=== PATIENT | female | born 1995 | race Caucasian/White ===

== ENCOUNTER 2021-04-28 22:56 | Emergency (ER) | payer SELFPAY ==
[2021-04-28 22:59] VITALS: BP 137/93; PULSE 124; RESP 18; TEMP 36.4; O2SAT 99; BMI 36.1
--- NOTE | 2021-04-28 23:04 | EDS_ITS ---
HPI History of Present Illness Chief Complaint: Laceration Narrative Narrative: 25-year-old female presents with laceration to the right calf. She states she was wiggling and she had her legs crossed in front of her and somehow managed to slice her leg when she came through with a forward motion. Bleeding is controlled with a dressing. Last tetanus unknown. Patient ambulatory. She denies significant medical problems. [facility] Medical History Anxiety Depression Home Medications buspirone 7.5 mg PO DAILY 04/28/21 [History Last Taken Unknown] duloxetine [Cymbalta] 30 mg PO DAILY 04/28/21 [History Last Taken Unknown] Allergy/AdvReac Type Severity Reaction Status Date / Time No Known Allergies Allergy Verified 04/28/21 22:57 Surgical History Hx of cholecystectomy [place] teeth extracted Social History Smoking Status: Current every day smoker tobacco type: e-cigarettes ROS ROS ED Constitutional Constitutional ED: Denies fever(s) or subjective Eyes Eyes: Denies blurry vision or change in vision ENT ENT ED: Denies rhinorrhea or sore throat Cardiovascular Cardiovascular: Denies chest pain or palpitations Respiratory/Chest Respiratory/Chest: Denies cough, dyspnea or sputum Gastrointestinal Gastrointestinal: Denies abdominal pain, nausea or vomiting Genitourinary Genitourinary ED: Denies dysuria or hematuria Musculoskeletal Musculoskeletal: Denies arthralgias or myalgias Integumentary Reports other Details: Laceration right calf Neurologic Neurologic: Denies headache(s) or paresthesias EXAM Physical Exam Const Vital Signs: 04/28/21 22:59 Temperature 97.6 F L Temperature Source Temporal Pulse Rate 124 H Respiratory Rate 18 Blood Pressure 137/93 H Blood Pressure Mean 107 Pulse Ox 99 Positive well nourished General Appearance ED: NAD HEENT normocephalic and atraumatic Eyes PERRL Resp normal respiratory effort Cardio regular rate and regular rhythm Extremity General Extremety ED: Negative for cyanosis or edema General Extremity: Negative for cyanosis or edema Neuro oriented x3 Sensorium / Orientation: alert Psych mental status grossly normal Skin Skin Narrative: 6 cm laceration to the right posterior medial calf. Bleeding is well controlled. Adipose layer is exposed. No muscle or tendons are visualized. MDM MDM MDM Narrative Medical decision making narrative: Patient's wound was cleaned with chlorhexidine and anesthetized. Sutures were placed with good approximation of wound borders please see procedure note. Patient counseled on wound care and monitoring for signs of infection. She will have her sutures out in 2 weeks. Patient's tetanus was updated today. Patient discharged home in stable condition. Impression: 1. Procedures Lacerations Right leg laceration: Length: 2.36 in Depth: Skin Shape: Linear Prep: Sterile Conditions and Chlorhexadine Laceration repair: Irrigated and Lidocaine with epi Irrigated (ml): 500 Number of Sutures/[place]: 8 Suture Information: [place] Discharge Plan Triage Chief Complaint: Laceration ED Provider: Kelton Rai Dx/Rx/DC Orders Prescriptions: No Action buspirone 7.5 mg Tablet 7.5 mg PO DAILY RF: 0 duloxetine [Cymbalta] 30 mg Capsule,Delayed Release(Dr/Ec) 30 mg PO DAILY RF: 0 Primary Care Provider: Fiona Palomino NP Referrals: Fiona Palomino NP, [employer] [facility] [Primary Care Provider] -
[2021-04-28] MEDS: Diphth,Pertuss(Acell),Tet Vac 0.5 ML Vial IM (23:36)
[2021-04-29] MEDS: Lidocaine 1% /Epi 1:100 (20ml) 20 ML Vial INFILT (01:14)
== END 2021-04-29 01:15 | disposition home or self-care (01) ==
PROVIDERS: Emergency Provider Student in an Organized Health Care Education/Training Program; PCP Registered Nurse
DX: S81.811A Laceration without foreign body, right lower leg, initial encounter (principal); F32.9 Major depressive disorder, single episode, unspecified; F41.9 Anxiety disorder, unspecified; F17.290 Nicotine dependence, other tobacco product, uncomplicated; Z79.899 Other long term (current) drug therapy; X58.XXXA Exposure to other specified factors, initial encounter
CPT/HCPCS: 12001; 90715; 96372; 99282

== ENCOUNTER 2022-06-11 08:04 | Emergency (ER) | payer SELFPAY ==
[2022-06-11 08:04] VITALS: BP 109/69; PULSE 85; RESP 16; TEMP 35.9; O2SAT 99; BMI 32.5
[2022-06-11] MEDS: DiphenhydrAMINE 50 MG/ML Syringe 25 MG IV (08:28)
[2022-06-11] MEDS: Metoclopramide 10 MG/2 ML Vial IV (08:29)
[2022-06-11] MEDS: Ketorolac 15 MG/ML Vial IV (08:29)
--- NOTE | 2022-06-11 08:52 | EDS_ITS ---
HPI History of Present Illness Chief Complaint: Headache Detail of Chief Complaint: Migraine headache Informant: patient Onset/Context/Timing Onset: Days Context: Gradual Timing: Continuous Quality -Headache: Positive for Throbbing; Negative for Similar Prior Headaches, Sharp or Dull Location: Bifrontal Current Severity: Mild Maximum Severity: Moderate Worsened by: Light and sound Relieved by: Nothing, has been taking Aleve Associated Symptoms/Injury Associated Symptoms: Positive for Nausea and Photophobia; Negative for Fever, Vomiting, Sore Throat, Sinus Pressure, Numbness, Tingling, Preceding Aura, Visu al Changes, Blurred Vision or Visual Loss Injury - [place]: Negative for Direct Trauma Narrative Narrative: Patient is a 26-year-old female who presents with bifrontal headache. She believes he has a migraine. She is admitted diagnosed with migraine. She does report myalgias, arthralgias, nasal congestion and productive cough. She denies history of motion sickness. She denies double vision or loss of vision. [place] ringing ears decreased hearing. She states she has problems with her balance. She denies vomiting diarrhea. She denies rash. She denies any allergies. Prior similar symptoms: No Recent Illness/Hospitalization: No [facility] Medical History Anxiety Depression Home Medications buspirone 7.5 mg tablet 7.5 mg PO DAILY 04/28/21 [History Last Taken Unknown] duloxetine 30 mg capsule,delayed release (Cymbalta) 30 mg PO DAILY 04/28/21 [History Last Taken Unknown] Allergy/AdvReac Type Severity Reaction Status Date / Time No Known Allergies Allergy Verified 06/11/22 08:06 Surgical History Hx of cholecystectomy [place] teeth extracted Social History (Updated 06/11/22 @ 08:[address] Miguelangel Hager MD) household members: spouse do you think of yourself as: lesbian/choe/homosexual Smoking Status: Current every day smoker tobacco type: e-cigarettes substance use type: does not use ROS ROS ED Constitutional Constitutional ED: Reports fever(s) and subjective; Denies chills, sweats or weight loss Eyes Eyes: Reports blurry vision bilateral; Denies change in vision or diplopia ENT ENT ED: Reports rhinorrhea; Denies ear pain or sore throat Cardiovascular Cardiovascular: Denies chest pain or palpitations Respiratory/Chest Respiratory/Chest: Reports cough; Denies dyspnea or dyspnea on exertion Gastrointestinal Gastrointestinal: Reports nausea; Denies abdominal pain, diarrhea or vomiting Genitourinary Genitourinary ED: Denies dysuria, hematuria or urinary frequency Musculoskeletal Musculoskeletal: Reports arthralgias and myalgias; Denies back pain or neck pain Integumentary Denies Abrasions or rash Neurologic Neurologic: Reports headache(s); Denies paresthesias or weakness Psychiatric Psychiatric: Reports anxiety and depression Endocrine Endocrinology: Denies polydipsia, polyphagia or polyuria Hematologic/Lymphatic Hematologic/Lymphatic: Denies easy bleeding EXAM Physical Exam Const Vital Signs: 06/11/22 08:04 Temperature 96.7 F L Temperature Source Temporal Pulse Rate 85 Respiratory Rate 16 Blood Pressure 109/69 Blood Pressure Mean 82 Pulse Ox 99 Oxygen Delivery Method Room Air Positive well nourished, well developed and obese General Appearance ED: well developed and NAD; Negative for cyanotic or diaphoretic Nutritional Appearance: obese HEENT Reports normocephalic, TM's clear and moist mucous membranes HEENT Narrative: Nares patent. Mild discharge. Uvula midline. No deviation trusion. atraumatic Face and Sinus: Negative for sinus tenderness Tympanic Membrane ED: Yes TM's clear Eyes PERRL and EOMs intact bilaterally Eyes Narrative: Patient has no photophobia. General Eye ED: Negative for pale conjunctiva or scleral icterus Neck no lymphadenopathy, supple, no meningeal signs and no JVD Resp normal respiratory effort and clear to auscultation bilaterally Cardio regular rate, regular rhythm, S1 normal heart sound, S2 normal heart sound and no murmurs GI non-tender and non-distended Auscultation: normoactive bowel sounds Palpation: soft Back/Spine no CVA tenderness Extremity normal to inspection, full ROM and normal capillary refill Neuro oriented x3, CN's II-XII intact bilaterally and no sensory deficits noted Vincent Coma Scale: document GCS findings Spontaneous Obeys Commands Oriented 15 Sensorium / Orientation: awake and alert Coordination / Balance: [id number] test normal Motor Exam: strength 5/5 throughout Psych mental status grossly normal Skin General Skin Exam: elasticity normal and turgor normal Lesions: no lesions Rashes: no rashes MDM MDM MDM Narrative Medical decision making narrative: Patient's headache is more consistent with a viral type cephalgia. Treatment and Re-Evaluation Narrative: Patient was reassessed at 0942. She is smiling. Headache has improved significantly. She was informed that her headache is due to a viral infection. She requested work excuse for today. Discharge Plan Triage Chief Complaint: Headache ED Provider: Miguelangel Hager Dx/Rx/DC Orders Clinical Impression: Viral cephalgia, Infection of the upper respiratory tract Instructions: ED Viral Syndrome (Adult) Prescriptions: No Action buspirone 7.5 mg Tablet 7.5 mg PO DAILY duloxetine [Cymbalta] 30 mg Capsule,Delayed Release(Dr/Ec) 30 mg PO DAILY Stand Alone Forms: ED Work / School Excuse Primary Care Provider: Fiona Palomino NP Referrals: Fiona Palomino NP, [employer] TRADER-C [Primary Care Provider] - 10-14 Days if not better Disposition Disposition: Home, Self Care
== END 2022-06-11 10:06 | disposition home or self-care (01) ==
PROVIDERS: Emergency Provider Emergency Medicine; PCP Registered Nurse; Visit Provider Emergency Medicine
DX: R51.9 Headache, unspecified (principal); J06.9 Acute upper respiratory infection, unspecified; F17.290 Nicotine dependence, other tobacco product, uncomplicated; E66.9 Obesity, unspecified
CPT/HCPCS: 96374; 96375; 99282; A4216

== ENCOUNTER → 2023-04-14 | Outpatient (CLI) | payer SELFPAY ==
[2023-04-16 12:09] LABS: QNTFERON TB Mitogen Value > 10.00 IU/mL (.); QNTFERON TB Nil Value 0 IU/mL (.); QNTFERON TB1+ Ag Value 0 IU/mL (.); QNTFERON TB2+ Ag Value 0 IU/mL (.); QNTIFERON TB Positive Criteria Negative (Negative)
== END | disposition home or self-care (01) ==
PROVIDERS: PCP Registered Nurse; Referring Provider Physician Assistant; Visit Provider Physician Assistant
DX: Z02.1 Encounter for pre-employment examination (principal)
CPT/HCPCS: 36415; 86480

== ENCOUNTER 2023-09-08 06:17 | Emergency (ER) | payer MEDICAID, SELFPAY ==
[2023-09-08 06:18] VITALS: BP 106/79; PULSE 91; RESP 16; TEMP 36.8; O2SAT 99; BMI 30.9
--- OUTSIDE RECORDS SUMMARY | 2023-09-08 06:44 | XMS RPT_ITS | CCD ---
Author Name Unknown Address [address] [place] [address] Organization [facility] Care Team Providers Care Printmaker Name Role Phone GRETEL NEGRETE Unavailable Unavailable ADRIAN FERNANDES Unavailable Unavailable Nany Aguirre CNP Primary Care Provider [phone] Nany Aguirre CNP Primary Care Provider [phone] Stephen Waller MD Primary Care Provider STEPHEN WALLER Attending Unavailable STEPHEN WALLER Primary Care Unavailable FLAVIO FARRIS Attending Unavailable Nany Aguirre CNP Primary Care Provider Nany Aguirre CNP Primary Care Provider NANY AGUIRRE Primary Care Unavailable NANY AGUIRRE Primary Care Unavailable NANY AGUIRRE Primary Care Unavailable NANY AGUIRRE Primary Care Unavailable Medications Current Medications Medication Drug Class(es) Dates Sig (Normalized) Sig (Original) amoxicillin 875 mg oral tablet (2 sources) Penicillin-class Antibacterial Start: 03-25-2022 End: 04-01-2022 take 1 tablet by mouth twice daily amoxicillin (AMOXIL) 875 mg tablet Indications: URI, acute , Pharyngitis, unspecified etiology Take 1 tablet by mouth twice daily for 7 days. 14 tablet 0 03/25/2022 04/01/2022 Active Completed/Discontinued Medications Medication Drug Class(es) Dates Sig (Normalized) Sig (Original) benzonatate 100 mg oral capsule (2 sources) Non-narcotic Antitussive Start: 07-01-2023 take 1 capsule by mouth every eight hours as needed benzonatate (TESSALON PERLES) 100 mg capsule Take 1 capsule by mouth three times a day as needed for cough. 21 capsule 0 07/01/2023 Active Problems Active Problems Problem Classification Problem Date Documented Date Episodic/Chronic Administrative/social admission (1 source) Worried well; Translations: [Person with feared health complaint in whom no diagnosis is made] 04-06-2023 Episodic Anxiety disorders (2 sources) Anxiety; Translations: [Anxiety disorder, unspecified] Onset: 11-12-2015 04-24-2022 Chronic Conditions associated with dizziness or vertigo (5 sources) Vertigo; Translations: [Dizziness and giddiness] Onset: 09-22-2022 09-22-2022 Episodic Disorders of teeth and jaw (1 source) Toothache; Translations: [Other specified disorders of teeth and supporting structures] 04-06-2023 Episodic Disorders usually diagnosed in infancy, childhood, or adolescence (2 sources) Attention deficit hyperactivity disorder, predominantly inattentive type; Translations: [Other specified behavioral and emotional disorders with onset usually occurring in childhood and adolescence] Onset: 10-19-2020 04-24-2022 Chronic Immunizations and screening for infectious disease (1 source) Contact with or exposure to other viral diseases; Translations: [Exposure to COVID-19 virus] Episodic Mood disorders (2 sources) Depressive disorder; Translations: [Depression] Onset: 11-12-2015 04-24-2022 Chronic Nausea and vomiting (2 sources) Nausea, vomiting and diarrhea; Translations: [Nausea with vomiting, unspecified] Episodic Other upper respiratory infections (4 sources) Acute upper respiratory infection; Translations: [Acute upper respiratory infection, unspecified] Episodic Otitis media and related conditions (2 sources) Acute right otitis media; Translations: [Otitis media, unspecified, right ear] Episodic Syncope (5 sources) Near syncope; Translations: [Syncope and collapse] Onset: 09-22-2022 09-22-2022 Episodic Past or Other Problems Problem Classification Problem Date Documented Date Episodic/Chronic Noninfectious gastroenteritis (4 sources) Gastroenteritis; Translations: [Noninfective gastroenteritis and colitis, unspecified] Onset: 06-20-2022 06-20-2022 Episodic Residual codes; unclassified (2 sources) Insomnia; Translations: [Insomnia, unspecified] Onset: 11-12-2015 04-24-2022 Episodic Residual codes; unclassified (2 sources) Tobacco user; Translations: [Tobacco use] Onset: 01-10-2016 04-24-2022 Episodic Results Test Name Value Interpretation Reference Range Facil ity Vital Signs Date Time Vital Sign Value Performing Clinician Jb hayden 07-01-2023 18:14-0500 Body temperature 99.19 [degF] Cherise Pelaez [employer] Work Phone: [facility] 07-01-2023 18:14-0500 Body weight 71.67 kg Cherise Pelaez [employer] Work Phone: [facility] 07-01-2023 18:14-0500 Diastolic blood pressure 82 mm[Hg] Cherise Pelaez [employer] Work Phone: [facility] 07-01-2023 18:14-0500 Heart rate 84 /min Cherise Pelaez [employer] Work Phone: [facility] 07-01-2023 18:14-0500 Respiratory rate 18 /min Cherise Pelaez [employer] Work Phone: [facility] 07-01-2023 18:14-0500 SaO2% (BldA) [Mass fraction] 99 % Cherise Pelaez [employer] Work Phone: [facility] 07-01-2023 18:14-0500 Systolic blood pressure 128 mm[Hg] Cherise Pelaez [employer] Work Phone: [facility] 04-06-2023 09:34-0400 Body temperature 97.3 [degF] Cherise Pelaez [employer] Work Phone: [facility] 04-06-2023 09:34-0400 Body weight 78.02 kg Cherise Pelaez [employer] Work Phone: [facility] 04-06-2023 09:34-0400 Diastolic blood pressure 72 mm[Hg] Cherise Pelaez [employer] Work Phone: [facility] 04-06-2023 09:34-0400 Heart rate 94 /min Cherise Pelaez [employer] Work Phone: [facility] 04-06-2023 09:34-0400 Respiratory rate 16 /min Cherise Pelaez [employer] Work Phone: [facility] 04-06-2023 09:34-0400 SaO2% (BldA) [Mass fraction] 99 % Cherise Pelaez [employer] Work Phone: [facility] 04-06-2023 09:34-0400 Systolic blood pressure 122 mm[Hg] Cherise Pelaez [employer] Work Phone: [facility] 11-17-2022 10:21-0400 Body temperature 98.4 [degF] Dimitri Pendlebury [employer] Work Phone: [facility] 11-17-2022 10:21-0400 Body weight 72.12 kg Dimitri Leoniegabrielkarl [employer] Work Phone: [facility] 11-17-2022 10:21-0400 Diastolic blood pressure 68 mm[Hg] Dimitri Pendlebury [employer] Work Phone: [facility] 11-17-2022 10:21-0400 Heart rate 87 /min Dimitri Pendlebury [employer] Work Phone: [facility] 11-17-2022 10:21-0400 Respiratory rate 18 /min Dimitri Pendlebury [employer] Work Phone: [facility] 11-17-2022 10:21-0400 SaO2% (BldA) [Mass fraction] 99 % Dimitri Leonielekarl [employer] Work Phone: [facility] 11-17-2022 10:21-0400 Systolic blood pressure 104 mm[Hg] Dimitri Pendlebury [employer] Work Phone: [facility] 10-08-2022 13:48-0400 Body temperature 98.8 [degF] Dayna Aguilar [employer] Work Phone: [facility] 10-08-2022 13:48-0400 Body weight 72.67 kg Dayna Aguilar [employer] Work Phone: [facility] 10-08-2022 13:48-0400 Diastolic blood pressure 72 mm[Hg] Dayna Callow [employer] Work Phone: [facility] 10-08-2022 13:48-0400 Heart rate 92 /min ow [employer] Work Phone: [facility] 10-08-2022 13:48-0400 Respiratory rate 18 /min ow [employer] Work Phone: [facility] 10-08-2022 13:48-0400 SaO2% (BldA) [Mass fraction] 98 % [employer] Work Phone: [facility] 10-08-2022 13:48-0400 Systolic blood pressure 116 mm[Hg] [employer] Work Phone: [facility] 09-22-2022 13:21-0400 Body height 153.7 cm Stephen Waller MD Work Phone: [facility] 09-22-2022 13:21-0400 Body mass index (BMI) [Ratio] 31.19 kg/m2 Stephen Waller MD Work Phone: [facility] 09-22-2022 13:21-0400 Body temperature 98.6 [degF] Stephen Waller MD Work Phone: [facility] 09-22-2022 13:21-0400 Body weight 73.66 kg Stephen Waller MD Work Phone: [facility] 09-22-2022 13:21-0400 Diastolic blood pressure 77 mm[Hg] Stephen Waller MD Work Phone: [facility] 09-22-2022 13:21-0400 Heart rate 85 /min Stephen Waller MD Work Phone: [facility] 09-22-2022 13:21-0400 Systolic blood pressure 122 mm[Hg] Stephen Waller MD Work Phone: [facility] 03-25-2022 14:07-0400 Body temperature 97.39 [degF] Cherise Pelaez [employer] Work Phone: [facility] 03-25-2022 14:07-0400 Body weight 76.39 kg Cherise Pelaez [employer] Work Phone: [facility] 03-25-2022 14:07-0400 Diastolic blood pressure 66 mm[Hg] Cherise Pelaez [employer] Work Phone: [facility] 03-25-2022 14:07-0400 Heart rate 73 /min Cherise Pelaez [employer] Work Phone: [facility] 03-25-2022 14:07-0400 Respiratory rate 16 /min Cherise Pelaez [employer] Work Phone: [facility] 03-25-2022 14:07-0400 SaO2% (BldA) [Mass fraction] 99 % Cherise Pelaez [employer] Work Phone: [facility] 03-25-2022 14:07-0400 Systolic blood pressure 110 mm[Hg] Cherise Pelaez [employer] Work Phone: [facility] 03-13-2022 08:00-0400 Body temperature 98.2 [degF] Daina Lanie [employer] Work Phone: [facility] 03-13-2022 08:00-0400 Body weight 75.84 kg Daina Lanie [employer] Work Phone: [facility] 03-13-2022 08:00-0400 Diastolic blood pressure 72 mm[Hg] Daina Lanie [employer] Work Phone: [facility] 03-13-2022 08:00-0400 Heart rate 75 /min Daina Lanie [employer] Work Phone: [facility] 03-13-2022 08:00-0400 Respiratory rate 18 /min Daina Lanie [employer] Work Phone: [facility] 03-13-2022 08:00-0400 SaO2% (BldA) [Mass fraction] 100 % Daina Dela Cruz [employer] Work Phone: [facility] 03-13-2022 08:00-0400 Systolic blood pressure 110 mm[Hg] Daina Dela Cruz [employer] Work Phone: [facility] 12-23-2021 11:42-0400 Body temperature 98.29 [degF] Cherise Pelaez [employer] Work Phone: [facility] 12-23-2021 11:42-0400 Body weight 80.29 kg Cherise Pelaez [employer] Work Phone: [facility] 12-23-2021 11:42-0400 Diastolic blood pressure 72 mm[Hg] Cherise Pelaez [employer] Work Phone: [facility] 12-23-2021 11:42-0400 Heart rate 98 /min Cherise Pelaez [employer] Work Phone: [facility] 12-23-2021 11:42-0400 Respiratory rate 16 /min Cherise Pelaez [employer] Work Phone: [facility] 12-23-2021 11:42-0400 SaO2% (BldA) [Mass fraction] 98 % Cherise Pelaez [employer] Work Phone: [facility] 12-23-2021 11:42-0400 Systolic blood pressure 124 mm[Hg] Cherise Pelaez [employer] Work Phone: [facility] Encounters Encounter Date Encounter Type Care Provider Facility Start: 07-02-2023 Telephone encounter Daina Dela Cruz [employer] Work Phone: [facility] Care Procedures Date Procedure Procedure Detail Performing Clinician Start: 07-01-2023 COVID & INFLUENZA A/ B & RSV NAAT, ROUTINE Cherise Pelaez [employer] Work Phone: Start: 10-08-2022 STREP A MOLECULAR (POC) [facility] Provider Start: 03-25-2022 STREP A MOLECULAR (POC) Cherise Pelaez [employer] Work Phone: Plan of Treatment Date Care Activity Detail Author Start: 2043 Zoster Vaccines (1 of 2) Zoster Vacc jane (1 of 2) [facility] Start: 04-28-2031 DTaP/Tdap/Td Vaccine s (2 - Td or Tdap) DTaP/Tdap/Td Vaccines (2 - Td or Tdap) [facility] Start: 04-28-2031 Urine microalbumin profile DTaP,Tdap,Td Vaccine (2 - Td or Tdap) [facility] Start: 03-13-2023 Covid-19 Vaccine ( season) Covid-19 Vaccine ( season) [facility] Start: 03-13-2023 Influenza vaccination C [facility] Start: 09-22-2022 End: 09-23-2023 CBC W Auto Differential panel - Blood CBC auto differential Lab Routine Near syncope Vertigo Expected: 09/22/2022 (Approximate), Expires: 09/23/2023 [facility] Immunizations Immunization Date Immunization Notes Care Provider Fa cility 04-28-2021 tetanus toxoid, redu aby diphtheria toxoid, and acellular pertussis vaccine, adsorbed Elana Ponce RN [facility] 12-27-2020 Pfizer SARS-CoV-2 Vaccination Elana Ponce RN [facility] 12-06-2020 Pfizer SARS-CoV-2 Vaccination Elana Ponce RN [facility] 05-19-2016 influenza virus vacc ine, unspecified formulation Elana Ponce RN [facility] 05-19-2016 influenza, injectabl e, quadrivalent, contains preservative Elana Ponce RN [facility] Payers Date Payer Category Payer Self-pay Social History Date Type Detail Facility Start: 11-11-2014 End: 03-13-2022 Tobacco smoking status NHIS Smokes tobacco daily [facility] Start: 11-11-2014 End: 07-01-2023 Cigarettes smoked current (pack per day) - Reported 1 [facility] Start: 11-11-2014 End: 03-13-2022 Tobacco use and exposure Smokeless tobacco non-user [facility] Start: 12-23-2021 End: 07-01-2023 Alcohol intake Current drinker of alcohol (finding) [facility] Start: 01-13-2013 History SDOH Alcohol Comment socially [facility] Start: 1995 Sex Assigned At Not on file [facility] Start: 12-13-2021 End: 09-22-2022 Exposure to SARS-CoV-2 (event) Not sure [facility] Work Phone: History of tobacco use Cigarette Smoker C [facility] Start: 03-03-2022 End: 03-13-2022 Exposure to SARS-CoV-2 (event) Yes [facility] Work Phone: Tobacco smoking stat us [facility] Ex-smoker [facility] History of tobacco use Current smoker [facility] Start: 09-22-2022 Alcohol intake Current non-dr assistant professor of english of alcohol (finding) [facility] Start: 09-22-2022 History SDOH Financial 5 [facility] Start: 09-22-2022 History SDOH Food Worry 1 [facility] Start: 09-22-2022 History SDOH Transpo rt Med 2 [facility] Start: 04-06-2023 End: 07-01-2023 Tobacco use panel [facility] Clinical Notes 12-23-2021 to 07-02-2023 Telephone Encounter - Karen Matthews - 07/02/2023 9:01 AM ESTTelephone Encounter - Daina Dela Cruz APRN.CNP - 07/02/2023 7:09 AM Cherise Reddy APRN.CNP - 07/01/2023 6:18 PM ESTPatient Instructions Note Date & Type Note Facility 07-02-2023 Miscellaneous Notes Patient verbally understands she tested positive for influenza and if symptoms worsen to go to the ER. Karen Matthews Please notify of negative covid and RSV test. Influenza A was positive. Continue comfort measures for symptoms as you would for a cold and as discussed at visit. As long as you are runninig a fever you are contagious. Any worsening symptoms follow up with PCP or ER. Daina Dela Cruz [employer] documented in this encounter [facility] 07-01-2023 Note HNO ID: [id number] Author: Cherise Pelaez APRN.CNP Service: ? Author Type: Nurse Practitioner Type: Progress Notes Filed: 07/01/2023 6:39 PM Note Text: This note was created using [employer]. Subjective Fang Leger is a 27 year old female. 27 year old female with PMH anxiety presents for illness. Acute onset 2 days ago +cough +body aches +fatigue +Fever +chills +headache +generalized weakness +N/V/D Denies CP Denies skin rash or lesions. Denies dyspnea Of note, she endorses that she hosted a [employer] democrat at her house, Multiple ill contacts from democrat The history is provided by the patient. No humanities and languages professor was used. URI She complains of cough. There is no chest tightness, difficulty breathing, frequent throat clearing, hemoptysis, hoarse voice, shortness of breath, sputum production or wheezing. This is a new problem. Episode onset: 2 days ago. The problem occurs constantly. The problem has been unchanged. The cough is non-productive. Associated symptoms include appetite change, a fever, headaches, malaise/fatigue, myalgias, nasal congestion, postnasal drip, rhinorrhea and sneezing. Pertinent negatives include no chest pain, ear congestion, ear pain, sweats, trouble swallowing or weight loss. Her symptoms are aggravated by nothing. Her symptoms are alleviated by nothing. She reports no improvement on treatment. There is no history of asthma, bronchiectasis, bronchitis, COPD, emphysema or pneumonia. PAST MEDICAL HISTORY Diagnosis Date Psychiatric disorder depression/anxiety/add PAST SURGICAL HISTORY Procedure Laterality Date TOOTH EXTRACTION wisdom teeth ALLERGIES Patient has no known allergies. MEDICATIONS fluticasone (FLONASE) 50 mcg/actuation nasal spray Use 2 Sprays in each nostril once daily. Rinse mouth after use. busPIRone (BUSPAR) 7.5 mg tablet Take 1 tablet by mouth once daily. benzonatate (TESSALON PERLES) 100 mg capsule Take 1 capsule by mouth three times a day as needed for cough. ondansetron orally disintegrating (ZOFRAN ODT) 4 mg disintegrating tablet Take 1 tablet by mouth every 6 hours as needed for nausea/vomiting. (Patient not taking: Reported on 04/06/2023) pseudoephedrine (SUDAFED) 60 mg tablet Take 0.5 tablets by mouth every 4 hours as needed. (Patient not taking: Reported on 04/06/2023) DULoxetine (CYMBALTA) 30 mg capsule Take 1 capsule by mouth once daily. (Patient not taking: Reported on 10/08/2022) DULoxetine (CYMBALTA) 60 mg capsule Take 1 capsule by mouth once daily. (Patient not taking: Reported on 10/08/2022) medroxyPROGESTERone (DEPO-PROVERA) 150 mg/mL injection Inject 150 mg intramuscularly. (Patient not taking: Reported on 10/08/2022) No family history on file. Social History Tobacco Use Smoking status: Every Day Packs/day: 1 Types: Cigarettes Smokeless tobacco: Never Substance Use Topics Alcohol use: Yes Comment: socially Drug use: No Review of Systems Constitutional: Positive for appetite change, chills, fatigue, fever and malaise/fatigue. Negative for weight loss. HENT: Positive for congestion, postnasal drip, rhinorrhea, sinus pressure, sinus pain and sneezing. Negative for ear pain, hoarse voice and trouble swallowing. Eyes: Negative for pain, discharge, redness and itching. Respiratory: Positive for cough. Negative for apnea, hemoptysis, sputum production, choking, chest tightness, shortness of breath and wheezing. Cardiovascular: Negative for chest pain, palpitations and leg swelling. Gastrointestinal: Negative for abdominal pain, diarrhea, nausea and vomiting. Musculoskeletal: Positive for myalgias. Negative for arthralgias and back pain. Skin: Negative for color change, pallor, rash and wound. Allergic/Immunologic: Negative for environmental allergies, food allergies and immunocompromised state. Neurological: Positive for headaches. Hematological: Negative for adenopathy. Does not bruise/bleed easily. Psychiatric/Behavioral: Negative for agitation and behavioral problems. Objective BP 128/82 Pulse 84 Temp 37.3 ?C (99.2 ?F) (Tympanic) Resp 18 Wt 71.7 kg (158 lb) LMP 10/25/2014 SpO2 99% BMI 30.86 kg/m? Physical Exam Vitals and nursing note reviewed. Constitutional: General: She is not in acute distress. Appearance: Normal appearance. She is normal weight. She is not ill-appearing, toxic-appearing or diaphoretic. HENT: Head: Normocephalic and atraumatic. Right Ear: Ear canal and external ear normal. Left Ear: Ear canal and external ear normal. Nose: Nose normal. No congestion or rhinorrhea. Mouth/Throat: Mouth: Mucous membranes are moist. Pharynx: Posterior oropharyngeal erythema present. No oropharyngeal exudate. Eyes: General: Right eye: No discharge. Left eye: No discharge. Extraocular Movements: Extraocular movements intact. Conjunctiva/sclera: Conjunctivae normal. Pupils: Pupils are equal, round, and reactive to l (more content not included)... [facility] 07-01-2023 History of Presen t illness Narrative This note was created using [employer]. Afshan Leger is a 27 year old female. 27 year old female with H anxiety presents for illness. Acute onset 2 days ago +cough +body aches +fatigue +Fever +chills +headache +generalized weakness +N/V/D Denies CP Denies skin rash or lesions. Denies dyspnea Of note, she endorses that she hosted a [employer] democrat at her house, Multiple ill contacts from democrat The history is provided by the patient. No humanities and languages professor was used. URI She complains of cough. There is no chest tightness, difficulty breathing, frequent throat clearing, hemoptysis, hoarse voice, shortness of breath, sputum production or wheezing. This is a new problem. Episode onset: 2 days ago. The problem occurs constantly. The problem has been unchanged. The cough is non-productive. Associated symptoms include appetite change, a fever, headaches, malaise/fatigue, myalgias, nasal congestion, postnasal drip, rhinorrhea and sneezing. Pertinent negatives include no chest pain, ear congestion, ear pain, sweats, trouble swallowing or weight loss. Her symptoms are aggravated by nothing. Her symptoms are alleviated by nothing. She reports no improvement on treatment. There is no history of asthma, bronchiectasis, bronchitis, COPD, emphysema or pneumonia. PAST MEDICAL HISTORY Diagnosis Date Psychiatric disorder depression/anxiety/add PAST SURGICAL HISTORY Procedure Laterality Date TOOTH EXTRACTION wisdom teeth ALLERGIES Patient has no known allergies. MEDICATIONS fluticasone (FLONASE) 50 mcg/actuation nasal spray Use 2 Sprays in each nostril once daily. Rinse mouth after use. busPIRone (BUSPAR) 7.5 mg tablet Take 1 tablet by mouth once daily. benzonatate (TESSALON PERLES) 100 mg capsule Take 1 capsule by mouth three times a day as needed for cough. ondansetron orally disintegrating (ZOFRAN ODT) 4 mg disintegrating tablet Take 1 tablet by mouth every 6 hours as needed for nausea/vomiting. (Patient not taking: Reported on 04/06/2023) pseudoephedrine (SUDAFED) 60 mg tablet Take 0.5 tablets by mouth every 4 hours as needed. (Patient not taking: Reported on 04/06/2023) DULoxetine (CYMBALTA) 30 mg capsule Take 1 capsule by mouth once daily. (Patient not taking: Reported on 10/08/2022) DULoxetine (CYMBALTA) 60 mg capsule Take 1 capsule by mouth once daily. (Patient not taking: Reported on 10/08/2022) medroxyPROGESTERone (DEPO-PROVERA) 150 mg/mL injection Inject 150 mg intramuscularly. (Patient not taking: Reported on 10/08/2022) No family history on file. Social History Tobacco Use Smoking status: Every Day Packs/day: 1 Types: Cigarettes Smokeless tobacco: Never Substance Use Topics Alcohol use: Yes Comment: socially Drug use: No Review of Systems Constitutional: Positive for appetite change, chills, fatigue, fever and malaise/fatigue. Negative for weight loss. HENT: Positive for congestion, postnasal drip, rhinorrhea, sinus pressure, sinus pain and sneezing. Negative for ear pain, hoarse voice and trouble swallowing. Eyes: Negative for pain, discharge, redness and itching. Respiratory: Positive for cough. Negative for apnea, hemoptysis, sputum production, choking, chest tightness, shortness of breath and wheezing. Cardiovascular: Negative for chest pain, palpitations and leg swelling. Gastrointestinal: Negative for abdominal pain, diarrhea, nausea and vomiting. Musculoskeletal: Positive for myalgias. Negative for arthralgias and back pain. Skin: Negative for color change, pallor, rash and wound. Allergic/Immunologic: Negative for environmental allergies, food allergies and immunocompromised state. Neurological: Positive for headaches. Hematological: Negative for adenopathy. Does not bruise/bleed easily. Psychiatric/Behavioral: Negative for agitation and behavioral problems. Objective BP 128/82 Pulse 84 Temp 37.3 C (99.2 F) (Tympanic) Resp 18 Wt 71.7 kg (158 lb) LMP 10/25/2014 SpO2 99% BMI 30.86 kg/m Physical Exam Vitals and nursing note reviewed. Constitutional: General: She is not in acute distress. Appearance: Normal appearance. She is normal weight. She is not ill-appearing, toxic-appearing or diaphoretic. HENT: Head: Normocephalic and atraumatic. Right Ear: Ear canal and external ear normal. Left Ear: Ear canal and external ear normal. Nose: Nose normal. No congestion or rhinorrhea. Mouth/Throat: Mouth: Mucous membranes are moist. Pharynx: Posterior oropharyngeal erythema present. No oropharyngeal exudate. Eyes: General: Right eye: No discharge. Left eye: No discharge. Extraocular Movements: Extraocular movements intact. Conjunctiva/sclera: Conjunctivae normal. Pupils: Pupils are equal, round, and reactive to light. Cardiovascular: Rate and Rhythm: Regular rhythm. Pulses: Normal pulses. Heart sounds: Normal heart sounds. No murmur heard. No friction rub. Pulmonary: Effort: Pulmonary effort is normal. No respiratory distress. Breath sounds: Normal breath sounds. No stridor. No wheezing, rhonchi or rales. Chest: Chest wall: No tenderness. Abdominal: General: Abdomen is flat. There is no distension. Palpations: Abdomen is soft. There is no mass. Tenderness: There is no abdominal tenderness. There is no right CVA tenderness, left CVA tenderness, guarding or rebound. Hernia: No hernia is present. Musculoskeletal: General: No swelling, tenderness, deformity or signs of injury. Normal range of motion. Cervical back: Normal range of motion and neck supple. No rigidity. Right lower leg: No edema. Left lower leg: No edema. Lymphadenopathy: Cervical: Cervical adenopathy present. Skin: General: Skin is warm and dry. Capillary Refill: Capillary refill takes less than 2 seconds. Coloration: Skin is not jaundiced or pale. Findings: No bruising, erythema, lesion or rash. Neurological: General: No focal deficit present. Mental Status: She is alert and oriented to person, place, and time. Cranial Nerves: No cranial nerve deficit. Sensory: No sensory deficit. Motor: No weakness. Coordination: Coordination normal. Gait: Gait normal. Psychiatric: Mood and Affect: Mood normal. Behavior: Behavior normal. Thought Content: Thought content normal. Judgment: Judgment normal. Assessment and Plan ASSESSMENT/PLAN: 1. URI, acute - ICD9: 465.9, ICD10: J06.9 X 2 days No red flags +ill contacts - Discussed viral etiology and rationale for treatment. - Symptomatic treatment with prn analgesia - Supportive care with fluids and rest - The patient may also use OTC cough and cold meds as needed, nasal saline gtts and suction prn, and RX Tessalon Perles. - Follow up in 3-5 days if symptoms persist or sooner if worsening of symptoms - COVID & INFLUENZA A/B & RSV NAAT, ROUTINE Cherise Pelaez APRN.[employer] documented in this encounter [facility] 04-06-2023 Note HNO ID: [id number] Author: Cherise Pelaez APRN.[employer] Service: ? Author Type: Nurse Practitioner Type: Progress Notes Filed: 04/06/2023 10:03 AM Note Text: This note was created using [employer]. Afshan Leger is a 27 year old female. 27 year old female with PMH anxiety presents for multiple complaints. Right Jaw Pain / Right dental pain. Acute onset 5 days Right dental pain and jaw pain Upper and lower + sensitivity to hot and cold Pain with chewing. Endorses has worsened and now encompasses right ear +tender lymph nodes Denies she has a dentist, denies she has seen dentist recently. +tobacco smoker. STD testing She specifically wants to be tested for genital herpes. 2 weeks ago she developed x one red bump +sore Burned really bad Endorses that it has greatly improved and in fact it is resolved. Denies vaginal bleeding or discharge States she would like the area tested for genital herpes The history is provided by the patient. No humanities and languages professor was used. Dental Problem This is a new problem. The current episode started in the past 7 days. The problem occurs constantly. The problem has been gradually worsening. Associated symptoms include a rash and swollen glands. Pertinent negatives include no abdominal pain, anorexia, arthralgias, change in bowel habit, chest pain, chills, congestion, coughing, diaphoresis, fatigue, fever, headaches, joint swelling, myalgias, nausea, neck pain, numbness, sore throat, urinary symptoms, vertigo, visual change, vomiting or weakness. Exacerbated by: eating, drinking, and chewing. She has tried nothing for the symptoms. The treatment provided no relief. Rash This is a new problem. The current episode started 1 to 4 weeks ago. The problem has been resolved since onset. Location: perineum. The rash is characterized by pain and redness. Pertinent negatives include no anorexia, congestion, cough, diarrhea, eye pain, facial edema, fatigue, fever, joint pain, nail changes, rhinorrhea, shortness of breath, sore throat or vomiting. Past treatments include nothing. The treatment provided no relief. There is no history of allergies, asthma, eczema or varicella. PAST MEDICAL HISTORY Diagnosis Date Psychiatric disorder depression/anxiety/add PAST SURGICAL HISTORY Procedure Laterality Date TOOTH EXTRACTION wisdom teeth ALLERGIES Patient has no known allergies. MEDICATIONS fluticasone (FLONASE) 50 mcg/actuation nasal spray Use 2 Sprays in each nostril once daily. Rinse mouth after use. busPIRone (BUSPAR) 7.5 mg tablet Take 1 tablet by mouth once daily. amoxicillin-clavulanic acid (AUGMENTIN) 875-125 mg per tablet Take 1 tablet by mouth twice daily for 7 days. fluconazole (DIFLUCAN) 150 mg tablet Take 1 tablet by mouth once daily for 1 day. ondansetron orally disintegrating (ZOFRAN ODT) 4 mg disintegrating tablet Take 1 tablet by mouth every 6 hours as needed for nausea/vomiting. (Patient not taking: Reported on 04/06/2023) pseudoephedrine (SUDAFED) 60 mg tablet Take 0.5 tablets by mouth every 4 hours as needed. (Patient not taking: Reported on 04/06/2023) DULoxetine (CYMBALTA) 30 mg capsule Take 1 capsule by mouth once daily. (Patient not taking: Reported on 10/08/2022) DULoxetine (CYMBALTA) 60 mg capsule Take 1 capsule by mouth once daily. (Patient not taking: Reported on 10/08/2022) medroxyPROGESTERone (DEPO-PROVERA) 150 mg/mL injection Inject 150 mg intramuscularly. (Patient not taking: Reported on 10/08/2022) No family history on file. Social History Tobacco Use Smoking status: Every Day Packs/day: 1 Types: Cigarettes Smokeless tobacco: Never Substance Use Topics Alcohol use: Yes Comment: socially Drug use: No Review of Systems Constitutional: Negative for chills, diaphoresis, fatigue and fever. HENT: Positive for dental problem. Negative for congestion, rhinorrhea and sore throat. Eyes: Negative for pain. Respiratory: Negative for cough and shortness of breath. Cardiovascular: Negative for chest pain, palpitations and leg swelling. Gastrointestinal: Negative for abdominal pain, anorexia, change in bowel habit, diarrhea, nausea and vomiting. Musculoskeletal: Negative for arthralgias, joint pain, joint swelling, myalgias and neck pain. Skin: Positive for rash. Negative for color change, nail changes and pallor. Allergic/Immunologic: Negative for environmental allergies, food allergies and immunocompromised state. Neurological: Negative for dizziness, vertigo, facial asymmetry, weakness, numbness and headaches. Hematological: Negative for adenopathy. Does not bruise/bleed easily. Psychiatric/Behavioral: Negative for agitation and behavioral problems. Objective BP 122/72 Pulse 94 Temp 36.3 ?C (97.3 ?F) Resp 16 Wt 78 kg (172 lb) LMP 10/25/2014 SpO2 99% BMI 33.59 kg/m? Physical Exam Vitals and nursing note reviewed. Constitutional: General: S (more content not included)... [facility] 04-06-2023 History of Presen t illness Narrative This note was created using [employer]. Subjective Fang Leger is a 27 year old female. 27 year old female with PMH anxiety presents for multiple complaints. Right Jaw Pain / Right dental pain. Acute onset 5 days Right dental pain and jaw pain Upper and lower + sensitivity to hot and cold Pain with chewing. Endorses has worsened and now encompasses right ear +tender lymph nodes Denies she has a dentist, denies she has seen dentist recently. +tobacco smoker. STD testing She specifically wants to be tested for genital herpes. 2 weeks ago she developed x one red bump +sore Burned really bad Endorses that it has greatly improved and in fact it is resolved. Denies vaginal bleeding or discharge States she would like the area tested for genital herpes The history is provided by the patient. No humanities and languages professor was used. Dental Problem This is a new problem. The current episode started in the past 7 days. The problem occurs constantly. The problem has been gradually worsening. Associated symptoms include a rash and swollen glands. Pertinent negatives include no abdominal pain, anorexia, arthralgias, change in bowel habit, chest pain, chills, congestion, coughing, diaphoresis, fatigue, fever, headaches, joint swelling, myalgias, nausea, neck pain, numbness, sore throat, urinary symptoms, vertigo, visual change, vomiting or weakness. Exacerbated by: eating, drinking, and chewing. She has tried nothing for the symptoms. The treatment provided no relief. Rash This is a new problem. The current episode started 1 to 4 weeks ago. The problem has been resolved since onset. Location: perineum. The rash is characterized by pain and redness. Pertinent negatives include no anorexia, congestion, cough, diarrhea, eye pain, facial edema, fatigue, fever, joint pain, nail changes, rhinorrhea, shortness of breath, sore throat or vomiting. Past treatments include nothing. The treatment provided no relief. There is no history of allergies, asthma, eczema or varicella. PAST MEDICAL HISTORY Diagnosis Date Psychiatric disorder depression/anxiety/add PAST SURGICAL HISTORY Procedure Laterality Date TOOTH EXTRACTION wisdom teeth ALLERGIES Patient has no known allergies. MEDICATIONS fluticasone (FLONASE) 50 mcg/actuation nasal spray Use 2 Sprays in each nostril once daily. Rinse mouth after use. busPIRone (BUSPAR) 7.5 mg tablet Take 1 tablet by mouth once daily. amoxicillin-clavulanic acid (AUGMENTIN) 875-125 mg per tablet Take 1 tablet by mouth twice daily for 7 days. fluconazole (DIFLUCAN) 150 mg tablet Take 1 tablet by mouth once daily for 1 day. ondansetron orally disintegrating (ZOFRAN ODT) 4 mg disintegrating tablet Take 1 tablet by mouth every 6 hours as needed for nausea/vomiting. (Patient not taking: Reported on 04/06/2023) pseudoephedrine (SUDAFED) 60 mg tablet Take 0.5 tablets by mouth every 4 hours as needed. (Patient not taking: Reported on 04/06/2023) DULoxetine (CYMBALTA) 30 mg capsule Take 1 capsule by mouth once daily. (Patient not taking: Reported on 10/08/2022) DULoxetine (CYMBALTA) 60 mg capsule Take 1 capsule by mouth once daily. (Patient not taking: Reported on 10/08/2022) medroxyPROGESTERone (DEPO-PROVERA) 150 mg/mL injection Inject 150 mg intramuscularly. (Patient not taking: Reported on 10/08/2022) No family history on file. Social History Tobacco Use Smoking status: Every Day Packs/day: 1 Types: Cigarettes Smokeless tobacco: Never Substance Use Topics Alcohol use: Yes Comment: socially Drug use: No Review of Systems Constitutional: Negative for chills, diaphoresis, fatigue and fever. HENT: Positive for dental problem. Negative for congestion, rhinorrhea and sore throat. Eyes: Negative for pain. Respiratory: Negative for cough and shortness of breath. Cardiovascular: Negative for chest pain, palpitations and leg swelling. Gastrointestinal: Negative for abdominal pain, anorexia, change in bowel habit, diarrhea, nausea and vomiting. Musculoskeletal: Negative for arthralgias, joint pain, joint swelling, myalgias and neck pain. Skin: Positive for rash. Negative for color change, nail changes and pallor. Allergic/Immunologic: Negative for environmental allergies, food allergies and immunocompromised state. Neurological: Negative for dizziness, vertigo, facial asymmetry, weakness, numbness and headaches. Hematological: Negative for adenopathy. Does not bruise/bleed easily. Psychiatric/Behavioral: Negative for agitation and behavioral problems. Objective BP 122/72 Pulse 94 Temp 36.3 C (97.3 F) Resp 16 Wt 78 kg (172 lb) LMP 10/25/2014 SpO2 99% BMI 33.59 kg/m Physical Exam Vitals and nursing note reviewed. Constitutional: General: She is not in acute distress. Appearance: Normal appearance. She is normal weight. She is not ill-appearing, toxic-appearing or diaphoretic. HENT: Head: Normocephalic and atraumatic. Right Ear: Ear canal and external ear normal. Left Ear: Ear canal and external ear normal. Nose: Nose normal. No congestion or rhinorrhea. Mouth/Throat: Mouth: Mucous membranes are moist. Pharynx: No oropharyngeal exudate or posterior oropharyngeal erythema. Comments: Recessed and inflamed gums Diffuse TTP of upper and lower molars right side No trismus No deep space infection noted. Eyes: General: Right eye: No discharge. Left eye: No discharge. Extraocular Movements: Extraocular movements intact. Conjunctiva/sclera: Conjunctivae normal. Pupils: Pupils are equal, round, and reactive to light. Cardiovascular: Rate and Rhythm: Normal rate and regular rhythm. Pulses: Normal pulses. Heart sounds: Normal heart sounds. No murmur heard. No friction rub. Pulmonary: Effort: Pulmonary effort is normal. No respiratory distress. Breath sounds: Normal breath sounds. No stridor. No wheezing, rhonchi or rales. Chest: Chest wall: No tenderness. Abdominal: General: Abdomen is flat. There is no distension. Palpations: Abdomen is soft. There is no mass. Tenderness: There is no abdominal tenderness. There is no right CVA tenderness, left CVA tenderness, guarding or rebound. Hernia: No hernia is present. Musculoskeletal: General: No swelling, tenderness, deformity or signs of injury. Normal range of motion. Cervical back: Normal range of motion and neck supple. No rigidity. Right lower leg: No edema. Left lower leg: No edema. Lymphadenopathy: Cervical: No cervical adenopathy. Skin: General: Skin is warm and dry. Coloration: Skin is not jaundiced or pale. Findings: No bruising, erythema, lesion or rash. Neurological: General: No focal deficit present. Mental Status: She is alert and oriented to person, place, and time. Cranial Nerves: No cranial nerve deficit. Sensory: No sensory deficit. Motor: No weakness. Coordination: Coordination normal. Gait: Gait normal. Psychiatric: Mood and Affect: Mood normal. Behavior: Behavior normal. Thought Content: Thought content normal. Judgment: Judgment normal. Assessment and Plan ASSESSMENT/PLAN: 1. Pain, dental - ICD9: 525.9, ICD10: K08.89 (primary diagnosis) X 5 days No history of dentist No red flags RX Augmentin and Diflucan Follow up with dentist RANJAN 2. Medical condition not demonstrated - ICD9: V65.5, ICD10: Z71.1 She specifically wants to be tested for genital herpes. 2 weeks ago she developed x one red bump +sore Burned really bad Endorses that it has greatly improved and in fact it is resolved. Denies vaginal bleeding or discharge States she would like the area tested for genital herpes Discussed with no sore, testing not indicated Encouraged to return at onset of symptoms and we would be happy to test. Cherise Pelaez APRN.CNP documented in this encounter [facility] 11-17-2022 Note HNO ID: [id number] Author: Dimitri Gonzáles APRN.CNP Service: ? Author Type: Nurse Practitioner Type: Progress Notes Filed: 11/17/2022 10:38 AM Note Text: Subjective HPI Nontoxic-appearing female presents urgent care chief complaint nausea vomiting loose stools headaches fatigue. Duration of symptom 1 day. Associated with symptoms listed above. Patient states colleague was sick similar signs symptoms. Her symptoms started about 36 hours after exposure. States nausea vomiting diarrhea is worse yesterday. Has improved slightly. Still has had 3 episodes of vomiting today. No blood in vomit or stool. Denies any significant pain. States she is fatigued. Is staying hydrated. Is urinating. Denies chance of . Is not breast-feeding. Denies any fevers productive cough chest pain shortness of breath hemoptysis or rashes. Past medical history prescription medication use allergies reviewed. .Patient presents with: Vomiting: [place], bodyaches x1 day PAST MEDICAL HISTORY Diagnosis Date Psychiatric disorder depression/anxiety/add PAST SURGICAL HISTORY Procedure Laterality Date TOOTH EXTRACTION wisdom teeth ALLERGIES Patient has no known allergies. MEDICATIONS pseudoephedrine (SUDAFED) 60 mg tablet Take 0.5 tablets by mouth every 4 hours as needed. fluticasone (FLONASE) 50 mcg/actuation nasal spray Use 2 Sprays in each nostril once daily. Rinse mouth after use. busPIRone (BUSPAR) 7.5 mg tablet Take 1 tablet by mouth once daily. ondansetron orally disintegrating (ZOFRAN ODT) 8 mg disintegrating tablet Take 1 tablet by mouth every 12 hours as needed for nausea/vomiting. (Patient not taking: Reported on 10/08/2022) DULoxetine (CYMBALTA) 30 mg capsule Take 1 capsule by mouth once daily. (Patient not taking: Reported on 10/08/2022) DULoxetine (CYMBALTA) 60 mg capsule Take 1 capsule by mouth once daily. (Patient not taking: Reported on 10/08/2022) medroxyPROGESTERone (DEPO-PROVERA) 150 mg/mL injection Inject 150 mg intramuscularly. (Patient not taking: Reported on 10/08/2022) History reviewed. No pertinent family history. Social History Tobacco Use Smoking status: Every Day Packs/day: 1.00 Types: Cigarettes Smokeless tobacco: Never Substance Use Topics Alcohol use: Yes Comment: socially Drug use: No BP 104/68 Pulse 87 Temp 36.9 ?C (98.4 ?F) Resp 18 Wt 72.1 kg (159 lb) LMP 10/25/2014 SpO2 99% BMI 31.05 kg/m? Review of Systems Constitutional: Positive for malaise/fatigue. Negative for chills and fever. HENT: Negative for congestion, ear discharge, ear pain, sinus pain and sore throat. Eyes: Negative for blurred vision, pain, discharge and redness. Respiratory: Negative for cough, hemoptysis, sputum production, shortness of breath, wheezing and stridor. Cardiovascular: Negative for chest pain. Gastrointestinal: Positive for abdominal pain, diarrhea, nausea and vomiting. Musculoskeletal: Positive for myalgias. Skin: Negative for itching and rash. Neurological: Negative for dizziness and headaches. Objective Physical Exam Constitutional: General: She is not in acute distress. Appearance: She is not diaphoretic. HENT: Head: Normocephalic. Right Ear: Tympanic membrane, ear canal and external ear normal. Left Ear: Tympanic membrane, ear canal and external ear normal. Mouth/Throat: Mouth: Mucous membranes are moist. Pharynx: Oropharynx is clear. No oropharyngeal exudate or posterior oropharyngeal erythema. Eyes: Conjunctiva/sclera: Conjunctivae normal. Pupils: Pupils are equal, round, and reactive to light. Cardiovascular: Rate and Rhythm: Normal rate and regular rhythm. Heart sounds: Normal heart sounds. Pulmonary: Effort: Pulmonary effort is normal. No tachypnea, accessory muscle usage or respiratory distress. Breath sounds: Normal breath sounds. No stridor. No wheezing, rhonchi or rales. Abdominal: Palpations: Abdomen is soft. Tenderness: There is no abdominal tenderness. There is no guarding or rebound. Musculoskeletal: Cervical back: Normal range of motion and neck supple. No rigidity or tenderness. Lymphadenopathy: Cervical: No cervical adenopathy. Skin: General: Skin is warm and dry. Neurological: Mental Status: She is alert and oriented to person, place, and time. ASSESSMENT/PLAN: 1. Nausea vomiting and diarrhea - ICD9: 787.91, 787.01, ICD10: R11.2, R19.7 Hemodynamically stable. No evidence of dehydration. No evidence of acute abdomen. Suspicious of viral etiology. Zofran prescribed as needed. Patient was educated on supportive therapies. Patient will follow up with primary care provider as needed. Patient was instructed to immediately proceed to emergency room for any new, worsening, or symptoms lasting longer than anticipated. The patient's clinical presentation is otherwise unremarkable at this time. Based on exam and clinical finding, the patient is stable for discharge. Dyan (more content not included)... [facility] 11-17-2022 History of Presen t illness Narrative Subjective HPI Nontoxic-appearing female presents urgent care chief complaint nausea vomiting loose stools headaches fatigue. Duration of symptom 1 day. Associated with symptoms listed above. Patient states colleague was sick similar signs symptoms. Her symptoms started about 36 hours after exposure. States nausea vomiting diarrhea is worse yesterday. Has improved slightly. Still has had 3 episodes of vomiting today. No blood in vomit or stool. Denies any significant pain. States she is fatigued. Is staying hydrated. Is urinating. Denies chance of . Is not breast-feeding. Denies any fevers productive cough chest pain shortness of breath hemoptysis or rashes. Past medical history prescription medication use allergies reviewed. .Patient presents with: Vomiting: [place], bodyaches x1 day PAST MEDICAL HISTORY Diagnosis Date Psychiatric disorder depression/anxiety/add PAST SURGICAL HISTORY Procedure Laterality Date TOOTH EXTRACTION wisdom teeth ALLERGIES Patient has no known allergies. MEDICATIONS pseudoephedrine (SUDAFED) 60 mg tablet Take 0.5 tablets by mouth every 4 hours as needed. fluticasone (FLONASE) 50 mcg/actuation nasal spray Use 2 Sprays in each nostril once daily. Rinse mouth after use. busPIRone (BUSPAR) 7.5 mg tablet Take 1 tablet by mouth once daily. ondansetron orally disintegrating (ZOFRAN ODT) 8 mg disintegrating tablet Take 1 tablet by mouth every 12 hours as needed for nausea/vomiting. (Patient not taking: Reported on 10/08/2022) DULoxetine (CYMBALTA) 30 mg capsule Take 1 capsule by mouth once daily. (Patient not taking: Reported on 10/08/2022) DULoxetine (CYMBALTA) 60 mg capsule Take 1 capsule by mouth once daily. (Patient not taking: Reported on 10/08/2022) medroxyPROGESTERone (DEPO-PROVERA) 150 mg/mL injection Inject 150 mg intramuscularly. (Patient not taking: Reported on 10/08/2022) History reviewed. No pertinent family history. Social History Tobacco Use Smoking status: Every Day Packs/day: 1.00 Types: Cigarettes Smokeless tobacco: Never Substance Use Topics Alcohol use: Yes Comment: socially Drug use: No BP 104/68 Pulse 87 Temp 36.9 C (98.4 F) Resp 18 Wt 72.1 kg (159 lb) LMP 10/25/2014 SpO2 99% BMI 31.05 kg/m Review of Systems Constitutional: Positive for malaise/fatigue. Negative for chills and fever. HENT: Negative for congestion, ear discharge, ear pain, sinus pain and sore throat. Eyes: Negative for blurred vision, pain, discharge and redness. Respiratory: Negative for cough, hemoptysis, sputum production, shortness of breath, wheezing and stridor. Cardiovascular: Negative for chest pain. Gastrointestinal: Positive for abdominal pain, diarrhea, nausea and vomiting. Musculoskeletal: Positive for myalgias. Skin: Negative for itching and rash. Neurological: Negative for dizziness and headaches. Objective Physical Exam Constitutional: General: She is not in acute distress. Appearance: She is not diaphoretic. HENT: Head: Normocephalic. Right Ear: Tympanic membrane, ear canal and external ear normal. Left Ear: Tympanic membrane, ear canal and external ear normal. Mouth/Throat: Mouth: Mucous membranes are moist. Pharynx: Oropharynx is clear. No oropharyngeal exudate or posterior oropharyngeal erythema. Eyes: Conjunctiva/sclera: Conjunctivae normal. Pupils: Pupils are equal, round, and reactive to light. Cardiovascular: Rate and Rhythm: Normal rate and regular rhythm. Heart sounds: Normal heart sounds. Pulmonary: Effort: Pulmonary effort is normal. No tachypnea, accessory muscle usage or respiratory distress. Breath sounds: Normal breath sounds. No stridor. No wheezing, rhonchi or rales. Abdominal: Palpations: Abdomen is soft. Tenderness: There is no abdominal tenderness. There is no guarding or rebound. Musculoskeletal: Cervical back: Normal range of motion and neck supple. No rigidity or tenderness. Lymphadenopathy: Cervical: No cervical adenopathy. Skin: General: Skin is warm and dry. Neurological: Mental Status: She is alert and oriented to person, place, and time. ASSESSMENT/PLAN: 1. Nausea vomiting and diarrhea - ICD9: 787.91, 787.01, ICD10: R11.2, R19.7 Hemodynamically stable. No evidence of dehydration. No evidence of acute abdomen. Suspicious of viral etiology. Zofran prescribed as needed. Patient was educated on supportive therapies. Patient will follow up with primary care provider as needed. Patient was instructed to immediately proceed to emergency room for any new, worsening, or symptoms lasting longer than anticipated. The patient's clinical presentation is otherwise unremarkable at this time. Based on exam and clinical finding, the patient is stable for discharge. Plan of care was discussed with patient. Patient verbalizes understanding and agrees to plan of care. This note was generated using [employer] software. It may contain errors in wording, punctuation, or spelling. Dimitri Gonzáles APRN.LOKI documented in this encounter [facility] 10-08-2022 Note HNO ID: [id number] Author: Dayna Aguilar APRN.LOKI Service: ? Author Type: Nurse Practitioner Type: Progress Notes Filed: 10/08/2022 2:15 PM Note Text: Subjective HPI Fang presents today with left earache, sore throat, vomited 4 times today and a headache. She is drinking well, no loose stool and has not taken any medication, she is not aware if she has had fever or not. Her partner is at home sick as well. PAST MEDICAL HISTORY Diagnosis Date Psychiatric disorder depression/anxiety/add PAST SURGICAL HISTORY Procedure Laterality Date TOOTH EXTRACTION wisdom teeth ALLERGIES Patient has no known allergies. MEDICATIONS busPIRone (BUSPAR) 7.5 mg tablet Take 1 tablet by mouth once daily. pseudoephedrine (SUDAFED) 60 mg tablet Take 0.5 tablets by mouth every 4 hours as needed. fluticasone (FLONASE) 50 mcg/actuation nasal spray Use 2 Sprays in each nostril once daily. Rinse mouth after use. ondansetron orally disintegrating (ZOFRAN ODT) 8 mg disintegrating tablet Take 1 tablet by mouth every 12 hours as needed for nausea/vomiting. (Patient not taking: Reported on 10/08/2022) DULoxetine (CYMBALTA) 30 mg capsule Take 1 capsule by mouth once daily. (Patient not taking: Reported on 10/08/2022) DULoxetine (CYMBALTA) 60 mg capsule Take 1 capsule by mouth once daily. (Patient not taking: Reported on 10/08/2022) medroxyPROGESTERone (DEPO-PROVERA) 150 mg/mL injection Inject 150 mg intramuscularly. (Patient not taking: Reported on 10/08/2022) No family history on file. Social History Tobacco Use Smoking status: Every Day Packs/day: 1.00 Types: Cigarettes Smokeless tobacco: Never Substance Use Topics Alcohol use: Yes Comment: socially Drug use: No Review of Systems HENT: Positive for ear pain and sore throat. Neurological: Positive for headaches. All other systems reviewed and are negative. Objective Physical Exam Constitutional: Appearance: Normal appearance. HENT: Head: Normocephalic and atraumatic. Right Ear: Tympanic membrane normal. Left Ear: Tympanic membrane normal. Nose: Nose normal. Mouth/Throat: Mouth: Mucous membranes are dry. Pharynx: Posterior oropharyngeal erythema present. No oropharyngeal exudate. Eyes: Extraocular Movements: Extraocular movements intact. Pupils: Pupils are equal, round, and reactive to light. Cardiovascular: Rate and Rhythm: Normal rate and regular rhythm. Pulses: Normal pulses. Heart sounds: Normal heart sounds. No murmur heard. Pulmonary: Effort: Pulmonary effort is normal. Breath sounds: Normal breath sounds. No stridor. No wheezing, rhonchi or rales. Chest: Chest wall: No tenderness. Abdominal: General: Abdomen is flat. Musculoskeletal: General: Normal range of motion. Cervical back: Normal range of motion. Skin: General: Skin is warm. Neurological: General: No focal deficit present. Mental Status: She is alert and oriented to person, place, and time. Psychiatric: Mood and Affect: Mood normal. Behavior: Behavior normal. ASSESSMENT/PLAN: 1. Sore throat - ICD9: 462, ICD10: J02.9 - Rapid Strep negative in the office today - RAPID STREP TEST B/O - increase fluids -Motrin prn -sudafed -flonase -follow up if not improving Dayna Aguilar APRN.[facility] 10-08-2022 History of Presen t illness Narrative Subjective HPI Fang presents today with left earache, sore throat, vomited 4 times today and a headache. She is drinking well, no loose stool and has not taken any medication, she is not aware if she has had fever or not. Her partner is at home sick as well. PAST MEDICAL HISTORY Diagnosis Date Psychiatric disorder depression/anxiety/add PAST SURGICAL HISTORY Procedure Laterality Date TOOTH EXTRACTION wisdom teeth ALLERGIES Patient has no known allergies. MEDICATIONS busPIRone (BUSPAR) 7.5 mg tablet Take 1 tablet by mouth once daily. pseudoephedrine (SUDAFED) 60 mg tablet Take 0.5 tablets by mouth every 4 hours as needed. fluticasone (FLONASE) 50 mcg/actuation nasal spray Use 2 Sprays in each nostril once daily. Rinse mouth after use. ondansetron orally disintegrating (ZOFRAN ODT) 8 mg disintegrating tablet Take 1 tablet by mouth every 12 hours as needed for nausea/vomiting. (Patient not taking: Reported on 10/08/2022) DULoxetine (CYMBALTA) 30 mg capsule Take 1 capsule by mouth once daily. (Patient not taking: Reported on 10/08/2022) DULoxetine (CYMBALTA) 60 mg capsule Take 1 capsule by mouth once daily. (Patient not taking: Reported on 10/08/2022) medroxyPROGESTERone (DEPO-PROVERA) 150 mg/mL injection Inject 150 mg intramuscularly. (Patient not taking: Reported on 10/08/2022) No family history on file. Social History Tobacco Use Smoking status: Every Day Packs/day: 1.00 Types: Cigarettes Smokeless tobacco: Never Substance Use Topics Alcohol use: Yes Comment: socially Drug use: No Review of Systems HENT: Positive for ear pain and sore throat. Neurological: Positive for headaches. All other systems reviewed and are negative. Objective Physical Exam Constitutional: Appearance: Normal appearance. HENT: Head: Normocephalic and atraumatic. Right Ear: Tympanic membrane normal. Left Ear: Tympanic membrane normal. Nose: Nose normal. Mouth/Throat: Mouth: Mucous membranes are dry. Pharynx: Posterior oropharyngeal erythema present. No oropharyngeal exudate. Eyes: Extraocular Movements: Extraocular movements intact. Pupils: Pupils are equal, round, and reactive to light. Cardiovascular: Rate and Rhythm: Normal rate and regular rhythm. Pulses: Normal pulses. Heart sounds: Normal heart sounds. No murmur heard. Pulmonary: Effort: Pulmonary effort is normal. Breath sounds: Normal breath sounds. No stridor. No wheezing, rhonchi or rales. Chest: Chest wall: No tenderness. Abdominal: General: Abdomen is flat. Musculoskeletal: General: Normal range of motion. Cervical back: Normal range of motion. Skin: General: Skin is warm. Neurological: General: No focal deficit present. Mental Status: She is alert and oriented to person, place, and time. Psychiatric: Mood and Affect: Mood normal. Behavior: Behavior normal. ASSESSMENT/PLAN: 1. Sore throat - ICD9: 462, ICD10: J02.9 - Rapid Strep negative in the office today - RAPID STREP TEST B/O - increase fluids -Motrin prn -sudafed -flonase -follow up if not improving Dayna Aguilar APRN.[employer] documented in this encounter [facility] 09-22-2022 Evaluation + Plan note Associated Problem(s): Vertigo Stable, increase fluids and rest of the labs Meclizine 25 mg take as directed caution about working or driving with the medicine [facility] 09-22-2022 Evaluation + Plan note Associated Problem(s): Near syncope Increase fluids, rest and will get blood work [facility] 09-22-2022 Miscellaneous Notes Associated Problem(s): Vertigo Stable, increase fluids and rest of the labs Meclizine 25 mg take as directed caution about working or driving with the medicine Associated Problem(s): Near syncope Increase fluids, rest and will get blood work documented in this encounter [facility] 09-22-2022 History of Presen t illness Narrative Images from the original note were not included. 09/22/2022 Fang Leger (: 1995) is a 27 y.o. female , Established patient, here for evaluation of the following chief complaint(s): Dizziness (Lightheaded with vomiting/Going on since Thursday) ASSESSMENT/PLAN: 1. Near syncope Assessment & Plan: Increase fluids, rest and will get blood work Orders: - Comprehensive metabolic panel - CBC auto differential 2. Vertigo Assessment & Plan: Stable, increase fluids and rest of the labs Meclizine 25 mg take as directed caution about working or driving with the medicine Orders: - Comprehensive metabolic panel - CBC auto differential - TSH Follow up in about 4 weeks (around 10/20/2022). SUBJECTIVE/OBJECTIVE: QUINTON Cedeno comes in today complaining that she is dizzy and lightheaded, she says at times she just feels off balance and lightheaded like she could pass out and other times she feels like the room is spinning around her. This all started 3 days ago and she has had some nausea and vomited at least once. She denies any other complaints such as headaches palpitations chest pain etc. Review of Systems Constitutional: Negative for chills and fever. HENT: Negative for ear pain, rhinorrhea and sinus pressure. Respiratory: Negative for shortness of breath. Cardiovascular: Negative for chest pain and palpitations. Genitourinary: Positive for menstrual problem. Negative for dysuria, frequency and urgency. Vitals: 09/22/22 1321 BP: 122/77 Pulse: 85 Temp: 37 C (98.6 F) Weight: 162 lb 6.4 oz (73.7 kg) Height: 5' 0.5 (1.537 m) Physical Exam Vitals and nursing note reviewed. Constitutional: General: She is not in acute distress. Appearance: Normal appearance. HENT: Head: Normocephalic. Right Ear: Tympanic membrane, ear canal and external ear normal. Left Ear: Tympanic membrane, ear canal and external ear normal. Mouth/Throat: Mouth: Mucous membranes are moist. Pharynx: Oropharynx is clear. Eyes: Extraocular Movements: Extraocular movements intact. Pupils: Pupils are equal, round, and reactive to light. Cardiovascular: Rate and Rhythm: Normal rate and regular rhythm. Heart sounds: Normal heart sounds. No murmur heard. Pulmonary: Effort: Pulmonary effort is normal. Breath sounds: Normal breath sounds. Abdominal: General: Bowel sounds are normal. Palpations: Abdomen is soft. Musculoskeletal: General: Normal range of motion. Cervical back: Normal range of motion. Lymphadenopathy: Cervical: No cervical adenopathy. Skin: General: Skin is warm and dry. Neurological: General: No focal deficit present. Mental Status: She is alert and oriented to person, place, and time. Psychiatric: Mood and Affect: Mood normal. An electronic signature was used to authenticate this note. Stephen Waller MD 09/22/2022 3:51 PM documented in this encounter [facility] 09-22-2022 Telephone encounter Note S: The patient is calling the PSYCHIATRIC About vomiting B: This started Thursday A: She will have multiple episodes of vomiting - she estimates 2-3 time a day. She had diarrhea on but this is gone. She has not taken her temperature although she wakes up with sweating. She has some lightheadedness; she is urinating a light colored urine. She is drinking plenty of fluid. R: Appointment made, insurance verified and care advice reviewed Reason for Disposition MILD to MODERATE vomiting (e.g., 1-5 times/day) and lasts > 48 hours (2 days) Protocols used: [id number] [facility] 09-22-2022 Miscellaneous Notes S: The patient is calling the PSYCHIATRIC About vomiting B: This started Thursday A: She will have multiple episodes of vomiting - she estimates 2-3 time a day. She had diarrhea on but this is gone. She has not taken her temperature although she wakes up with sweating. She has some lightheadedness; she is urinating a light colored urine. She is drinking plenty of fluid. R: Appointment made, insurance verified and care advice reviewed Reason for Disposition MILD to MODERATE vomiting (e.g., 1-5 times/day) and lasts > 48 hours (2 days) Protocols used: [id number] documented in this encounter [facility] 03-26-2022 Miscellaneous Notes Patient given results and verbalized understanding of instructions given. Tamera Ferro COVID negative. Influenza and RSV negative. Continue the ATB for the positive strep. Follow up with PCP documented in this encounter [facility] 03-25-2022 History of Presen t illness Narrative This note was created using [employer]. Subjective Fang Leger is a 26 year old female. 26 year old female with PMH anxiety and depression presents with complaints of illness. Acute onset 4 days ago +sore throat +earache, right greater than left +nasal congestion +sinus pressure Denies cough +nausea Denies emesis. +fever +chills. States girlfriend tested positive for strep a few days ago Requesting work note. The history is provided by the patient. No humanities and languages professor was used. URI There is no chest tightness, cough, difficulty breathing, frequent throat clearing, hemoptysis, hoarse voice, shortness of breath, sputum production or wheezing. This is a new problem. The current episode started in the past 7 days. The problem occurs constantly. The problem has been gradually worsening. Associated symptoms include ear pain, a fever, headaches, malaise/fatigue, nasal congestion, rhinorrhea and a sore throat. Pertinent negatives include no appetite change, chest pain, dyspnea on exertion, ear congestion, heartburn, myalgias, orthopnea, PND, postnasal drip, sneezing, sweats, trouble swallowing or weight loss. Her symptoms are aggravated by nothing. Her symptoms are alleviated by nothing. There are no known risk factors for lung disease. There is no history of asthma, bronchiectasis, bronchitis, COPD, emphysema or pneumonia. PAST MEDICAL HISTORY Diagnosis Date Psychiatric disorder depression/anxiety/add PAST SURGICAL HISTORY Procedure Laterality Date TOOTH EXTRACTION wisdom teeth ALLERGIES Patient has no known allergies. MEDICATIONS mupirocin (BACTROBAN) 2 % ointment Apply to affected area three times daily for 10 days. ondansetron orally disintegrating (ZOFRAN ODT) 8 mg disintegrating tablet Take 1 tablet by mouth every 12 hours as needed for nausea/vomiting. busPIRone (BUSPAR) 7.5 mg tablet Take 1 tablet by mouth once daily. DULoxetine (CYMBALTA) 30 mg capsule Take 1 capsule by mouth once daily. DULoxetine (CYMBALTA) 60 mg capsule Take 1 capsule by mouth once daily. medroxyPROGESTERone (DEPO-PROVERA) 150 mg/mL injection Inject 150 mg intramuscularly. amoxicillin (AMOXIL) 875 mg tablet Take 1 tablet by mouth twice daily for 7 days. No family history on file. Social History Tobacco Use Smoking status: Every Day Packs/day: 1.00 Types: Cigarettes Smokeless tobacco: Never Substance Use Topics Alcohol use: Yes Comment: socially Drug use: No Review of Systems Constitutional: Positive for fever and malaise/fatigue. Negative for appetite change and weight loss. HENT: Positive for ear pain, rhinorrhea and sore throat. Negative for hoarse voice, postnasal drip, sneezing and trouble swallowing. Eyes: Negative for pain, discharge and itching. Respiratory: Negative for cough, hemoptysis, sputum production, shortness of breath and wheezing. Cardiovascular: Negative for chest pain, dyspnea on exertion, palpitations, leg swelling and PND. Gastrointestinal: Negative for abdominal pain, diarrhea, heartburn, nausea and vomiting. Musculoskeletal: Negative for arthralgias, back pain and myalgias. Skin: Negative for color change, pallor, rash and wound. Allergic/Immunologic: Negative for environmental allergies, food allergies and immunocompromised state. Neurological: Positive for headaches. Negative for dizziness and facial asymmetry. Hematological: Negative for adenopathy. Does not bruise/bleed easily. Psychiatric/Behavioral: Negative for agitation and behavioral problems. Objective BP 110/66 Pulse 73 Temp 36.3 C (97.4 F) Resp 16 Wt 76.4 kg (168 lb 6.4 oz) LMP (Approximate) SpO2 99% BMI 32.89 kg/m Physical Exam Vitals and nursing note reviewed. Constitutional: General: She is not in acute distress. Appearance: Normal appearance. She is normal weight. She is not ill-appearing, toxic-appearing or diaphoretic. HENT: Head: Normocephalic and atraumatic. Right Ear: Ear canal and external ear normal. Left Ear: Tympanic membrane, ear canal and external ear normal. Ears: Comments: Right TM erythematous and bulging Nose: Nose normal. No congestion or rhinorrhea. Mouth/Throat: Mouth: Mucous membranes are moist. Pharynx: No oropharyngeal exudate or posterior oropharyngeal erythema. Eyes: General: Right eye: No discharge. Left eye: No discharge. Extraocular Movements: Extraocular movements intact. Conjunctiva/sclera: Conjunctivae normal. Pupils: Pupils are equal, round, and reactive to light. Cardiovascular: Rate and Rhythm: Normal rate and regular rhythm. Pulses: Normal pulses. Heart sounds: Normal heart sounds. No murmur heard. No friction rub. Pulmonary: Effort: Pulmonary effort is normal. No respiratory distress. Breath sounds: Normal breath sounds. No stridor. No wheezing, rhonchi or rales. Chest: Chest wall: No tenderness. Abdominal: General: Abdomen is flat. There is no distension. Palpations: Abdomen is soft. There is no mass. Tenderness: There is no abdominal tenderness. There is no right CVA tenderness, left CVA tenderness, guarding or rebound. Hernia: No hernia is present. Musculoskeletal: General: No swelling, tenderness, deformity or signs of injury. Normal range of motion. Cervical back: Normal range of motion and neck supple. No rigidity. Right lower leg: No edema. Left lower leg: No edema. Lymphadenopathy: Cervical: No cervical adenopathy. Skin: General: Skin is warm and dry. Coloration: Skin is not jaundiced or pale. Findings: No bruising, erythema, lesion or rash. Neurological: General: No focal deficit present. Mental Status: She is alert and oriented to person, place, and time. Cranial Nerves: No cranial nerve deficit. Sensory: No sensory deficit. Motor: No weakness. Coordination: Coordination normal. Gait: Gait normal. Psychiatric: Mood and Affect: Mood normal. Behavior: Behavior normal. Thought Content: Thought content normal. Judgment: Judgment normal. Assessment and Plan ASSESSMENT/PLAN: 1. URI, acute - ICD9: 465.9, ICD10: J06.9 (primary diagnosis) - Symptomatic treatment with prn analgesia - Supportive care with fluids and rest - The patient may also use OTC cough and cold meds as needed, warm salt water gargles, throat lozenges and/or OTC throat spray as needed, and nasal saline gtts and suction prn. - Follow up in 3-5 days if symptoms persist or sooner if worsening of symptoms - COVID WITH FLUA+B, ROUTINE - AMOXICILLIN 875 MG TABLET 2. Pharyngitis, unspecified etiology - ICD9: 462, ICD10: J02.9 - Discussed supportive care treatment with fluids, rest and analgesia. - The patient may also use OTC cough and cold meds as needed. - Contagious dz precautions discussed- including considered contagious until on antibiotics for 24 hours - The patient should follow up in 3-5 days if symptoms persist or worsen - Call back if drooling, increased temperature, symptoms of dehydration and/or still sick in one week - STREP A MOLECULAR (POC) - COVID WITH FLUA+B, ROUTINE - AMOXICILLIN 875 MG TABLET 3. Acute otitis media, right - ICD9: 382.9, ICD10: H66.91 - Will begin treatment with as per antibiotic as written, see orders - The patient should also be given OTC cough and cold meds as needed, warm salt water gargles, throat lozenges and/or OTC throat spray as needed, and nasal saline gtts and suction prn for the first 5-7 days of treatment. - Supportive care with plenty of fluids, rest, and analgesia prn. - Follow up in 3-5 days if symptoms persist or worsen. Cherise Pelaez APRN.LOKI documented in this encounter [facility] 03-14-2022 Miscellaneous Notes Patient's partner notified.Carleen Morrell LPN ----- Message from Marleny Velazquez APRN.CNP sent at 03/14/2022 7:09 AM EDT ----- Please advise patient the COVID and flu test was negative. Marleny Velazquez APRN.CNP documented in this encounter [facility] 03-13-2022 Instructions Daina Dela Cruz APRN.CNP - 03/13/2022 8:22 AM EDT Zofran as ordered covid test ordered You will be notified in 24 hours, results available on [facility] Home isolation until covid results are back Rest, increase water intake Motrin or Tylenol as needed for fever or pain. Tylenol (generic acetaminophen) 500 mg-2 tabs every 8 hrs. as needed for fever and aches Ibuprofen 600 mg (3-200mg tablets) every 6 hours Drink small sips of clear fluids to begin with. Advance to other liquids as tolerated. If tolerating liquids for several hours without vomiting, then you can try bland foods such as toast, crackers, etc. Advance to full diet when nausea/vomiting has completely resolved but avoid greasy, fatty, spicy foods for next several days. * Seek medical care immediately, call 911, go to ER if you have chest pain, difficulty breathing, shortness of breath, inability to swallow. How is diarrhea treated? Tips for managing diarrhea without medication: Drink liquids frequently. Increase the amount to two to three liters or quarts daily as tolerated, or try sipping liquids in small amounts throughout the day. Choose diluted, pulpless fruit juices, broths, oral rehydration drinks, or sodas (without caffeine). Chicken broth (without the fat), tea with honey, and sports drinks also are good choices. Instead of drinking liquids with your meals, drink liquids between meals. Try these low-fiber foods: potatoes; rice; noodles; ripe bananas; applesauce; smooth peanut butter; white bread; chicken or turkey without the skin; lean ground beef; fish; yogurt; or cottage cheese. Avoid the following: greasy, fatty, or fried foods; raw vegetables and fruits; strong spices; and whole-grain cereals and breads. Limit food or beverages with caffeine, such as chocolate, coffee, strong tea, and some sodas. If you have cramping with diarrhea, avoid foods and beverages that cause gas, such as beans, cabbage, beer, and carbonated beverages. Diarrheal illness may cause temporary lactose (dairy) intolerance, so avoid these foods if they are making diarrhea worse. To ER for worsening symptoms, increased pain, fevers, vomiting, decreased urine output, blood in her urine blood in her stools or dark tarry stools. documented in this encounter [facility] 03-13-2022 History of Presen t illness Narrative Subjective The history is provided by the patient. No humanities and languages professor was used. HPI Fangramiro Leger is a 26 year old female who presents today for CC of nausea, vomiting and diarrhea for 1 days, exposure to covid, and body aches Symptoms include: Fever (?100.4F): No or Chills: No Cough: No Shortness of breath: No or Difficulty breathing: No Fatigue: Yes Muscle aches: Yes Headache: No New loss of smell or taste: No Sore throat: No Nasal congestion: No or Rhinorrhea: No Nausea: Yes or Vomiting: Yes Diarrhea: Yes OTC meds/remedies that patient has tried: acetaminophen. High risk category assessment No high risk factors Exposures: Sick contacts? Yes Family or close contacts with confirmed/probable COVID-19 in last 14 days? Yes BP 110/72 Pulse 75 Temp 36.8 C (98.2 F) Resp 18 Wt 75.8 kg (167 lb 3.2 oz) LMP 10/25/2014 SpO2 100% BMI 32.65 kg/m Social History Tobacco Use Smoking status: Every Day Packs/day: 1.00 Types: Cigarettes Smokeless tobacco: Never Substance Use Topics Alcohol use: Yes Comment: socially Drug use: No PAST MEDICAL HISTORY Diagnosis Date Psychiatric disorder depression/anxiety/add I have confirmed and edited as necessary, the [facility] Review of Systems Constitutional: Positive for malaise/fatigue. Negative for chills and fever. HENT: Positive for congestion. Negative for ear pain, sinus pain and sore throat. Respiratory: Negative for cough, sputum production, shortness of breath and wheezing. Cardiovascular: Negative for chest pain. Gastrointestinal: Positive for abdominal pain (cramping), diarrhea, nausea and vomiting. Genitourinary: Negative for dysuria, flank pain, frequency, hematuria and urgency. Musculoskeletal: Positive for myalgias. Neurological: Negative for headaches. Objective Physical Exam Vitals and nursing note reviewed. Constitutional: Appearance: Normal appearance. HENT: Head: Normocephalic and atraumatic. Right Ear: Tympanic membrane, ear canal and external ear normal. Left Ear: Tympanic membrane, ear canal and external ear normal. Nose: No mucosal edema, congestion or rhinorrhea. Right Sinus: No maxillary sinus tenderness or frontal sinus tenderness. Left Sinus: No maxillary sinus tenderness or frontal sinus tenderness. Mouth/Throat: Pharynx: Uvula midline. No oropharyngeal exudate or posterior oropharyngeal erythema. Cardiovascular: Rate and Rhythm: Normal rate and regular rhythm. Heart sounds: Normal heart sounds. Pulmonary: Effort: Pulmonary effort is normal. Breath sounds: Normal breath sounds. Abdominal: General: Bowel sounds are normal. There is no abdominal bruit. Palpations: Abdomen is not rigid. There is no mass or pulsatile mass. Tenderness: There is generalized abdominal tenderness (mild, generalized). There is no guarding or rebound. Negative signs include Lopez's sign and McBurney's sign. Lymphadenopathy: Head: Right side of head: No submental, submandibular or tonsillar adenopathy. Left side of head: No submental, submandibular or tonsillar adenopathy. Cervical: No cervical adenopathy. Skin: General: Skin is warm and dry. Neurological: Mental Status: She is alert and oriented to person, place, and time. Psychiatric: Mood and Affect: Affect normal. ASSESSMENT/PLAN: 1. Nausea vomiting and diarrhea - ICD9: 787.91, 787.01, ICD10: R11.2, R19.7 (primary diagnosis) - ONDANSETRON 8 MG DISINTEGRATING TABLET 2. Exposure to COVID-19 virus - ICD9: V01.79, ICD10: Z20.822 Home isolation Testing ordered Comfort measures discussed - see patient instructions. When to seek higher level of care Notified in 24-48 hours with results, available on [employer]hart - COVID WITH FLUA+B, ROUTINE - ONDANSETRON 8 MG DISINTEGRATING TABLET Diagnosis and treatment plan were discussed and questions were answered to the patient's satisfaction. Pt acknowledged understanding of concepts and follow up plan. Specific signs and symptoms that would indicate the need for higher level of care were discussed in detail warranting prompt ER evaluation. Daina Dela Cruz APRN.[employer] documented in this encounter [facility] 12-23-2021 Instructions Cherise Pelaez APRN.LOKI - 12/23/2021 11:49 AM EDT OTITIS MEDIA GENERAL INFORMATION: Otitis media is an infection of the middle ear. The middle ear sits behind the eardrum. This infection may be caused by a virus or bacteria and often follows a cold. Children often have repeat ear infections. Otitis media is not contagious. INSTRUCTIONS: 1. An antibiotic has been prescribed. It should be taken exactly as prescribed. Do not stop the medicine even if the symptoms go away. 2. Rzun-iyo-rrvdcah pain medication may be taken or other pain medication as prescribed by the doctor. 3. Nothing should be placed in the ear unless instructed by your doctor. 4. The patient may return to school/daycare or work when the temperature is normal (98.6 F or 37 C). 5. The patient should not swim while the ear is infected. CONTACT YOUR DOCTOR IF YOU OR YOUR CHILD: 1. Does not feel better within 36 hours. 2. Develops a temperature over 102E F (39E C). 3. Starts vomiting or has diarrhea. 4. Develops drainage from the affected ear. 5. Has any new problem that may be related to the medicine prescribed. RETURN TO THE ED IF: 1. You or your child has a severe headache or pain around the ear. 2. You or your child notice swelling around the ear. 3. You or your child has a seizure (convulsion), twitching of the facial muscles, or passes out. 4. You or your child is dizzy, has a stiff neck, or cannot walk or talk normally. 5. Your child becomes more irritable or listless (not interested in his or her surroundings, does not get soothed by you holding him or her). documented in this encounter [facility] 12-23-2021 History of Presen t illness Narrative This note was created using [employer]. Subjective Fang Leger is a 26 year old female. 26 year old female with H anxiety and depression presents for illness. Acute onset 3 days ago Right ear Denies drainage. Denies reduced hearing Endorses that the pain has increased. She also has right enlarged lymph nodes +sore throat Denies cough or congestion. Denies fever or chills. Denies malaise or fatigue. Denies SOB or dyspnea Has utilized Aleve without relief. She also utilized OTC ear drops without relief. The history is provided by the patient. No humanities and languages professor was used. Ear Pain This is a new problem. The current episode started in the past 7 days. The problem occurs constantly. The problem has been gradually worsening. Associated symptoms include a sore throat and swollen glands. Pertinent negatives include no abdominal pain, anorexia, arthralgias, change in bowel habit, chest pain, chills, congestion, coughing, diaphoresis, fatigue, fever, headaches, joint swelling, myalgias, nausea, neck pain, numbness, rash, urinary symptoms, vertigo, visual change, vomiting or weakness. Nothing aggravates the symptoms. She has tried nothing for the symptoms. The treatment provided no relief. PAST MEDICAL HISTORY Diagnosis Date Psychiatric disorder depression/anxiety/add PAST SURGICAL HISTORY Procedure Laterality Date TOOTH EXTRACTION wisdom teeth ALLERGIES Patient has no known allergies. MEDICATIONS busPIRone (BUSPAR) 7.5 mg tablet Take 1 tablet by mouth once daily. DULoxetine (CYMBALTA) 30 mg capsule Take 1 capsule by mouth once daily. DULoxetine (CYMBALTA) 60 mg capsule Take 1 capsule by mouth once daily. medroxyPROGESTERone (DEPO-PROVERA) 150 mg/mL injection Inject 150 mg intramuscularly. amoxicillin-clavulanic acid (AUGMENTIN) 875-125 mg per tablet Take 1 tablet by mouth twice daily for 7 days. fluconazole (DIFLUCAN) 150 mg tablet Take 1 tablet by mouth once daily for 1 day. No family history on file. Social History Tobacco Use Smoking status: Current Every Day Smoker Packs/day: 1.00 Smokeless tobacco: Never Used Substance Use Topics Alcohol use: Yes Comment: socially Drug use: No Review of Systems Constitutional: Negative for chills, diaphoresis, fatigue and fever. HENT: Positive for ear pain and sore throat. Negative for congestion, ear discharge, sinus pressure and sinus pain. Eyes: Negative for pain, discharge, redness and itching. Respiratory: Negative for apnea, cough, chest tightness, shortness of breath and stridor. Cardiovascular: Negative for chest pain, palpitations and leg swelling. Gastrointestinal: Negative for abdominal pain, anorexia, change in bowel habit, nausea and vomiting. Musculoskeletal: Negative for arthralgias, joint swelling, myalgias and neck pain. Skin: Negative for color change, pallor and rash. Allergic/Immunologic: Negative for environmental allergies, food allergies and immunocompromised state. Neurological: Negative for dizziness, vertigo, facial asymmetry, weakness, light-headedness, numbness and headaches. Hematological: Negative for adenopathy. Does not bruise/bleed easily. Psychiatric/Behavioral: Negative for agitation and behavioral problems. Objective BP 124/72 Pulse 98 Temp 36.8 C (98.3 F) Resp 16 Wt 80.3 kg (177 lb) LMP 10/25/2014 SpO2 98% BMI 34.57 kg/m Physical Exam Vitals and nursing note reviewed. Constitutional: General: She is not in acute distress. Appearance: Normal appearance. She is normal weight. She is not ill-appearing, toxic-appearing or diaphoretic. HENT: Head: Normocephalic and atraumatic. Right Ear: Ear canal and external ear normal. Left Ear: Ear canal and external ear normal. Ears: Comments: Right ear bulging and erythematous Nose: Nose normal. No congestion or rhinorrhea. Mouth/Throat: Mouth: Mucous membranes are moist. Pharynx: No oropharyngeal exudate or posterior oropharyngeal erythema. Eyes: General: Right eye: No discharge. Left eye: No discharge. Extraocular Movements: Extraocular movements intact. Conjunctiva/sclera: Conjunctivae normal. Pupils: Pupils are equal, round, and reactive to light. Cardiovascular: Rate and Rhythm: Normal rate and regular rhythm. Pulses: Normal pulses. Heart sounds: Normal heart sounds. No murmur heard. No friction rub. Pulmonary: Effort: Pulmonary effort is normal. No respiratory distress. Breath sounds: Normal breath sounds. No stridor. No wheezing, rhonchi or rales. Chest: Chest wall: No tenderness. Abdominal: General: Abdomen is flat. There is no distension. Palpations: Abdomen is soft. There is no mass. Tenderness: There is no abdominal tenderness. There is no right CVA tenderness, left CVA tenderness, guarding or rebound. Hernia: No hernia is present. Musculoskeletal: General: No swelling, tenderness, deformity or signs of injury. Normal range of motion. Cervical back: Normal range of motion and neck supple. No rigidity. Right lower leg: No edema. Left lower leg: No edema. Lymphadenopathy: Cervical: No cervical adenopathy. Skin: General: Skin is warm and dry. Coloration: Skin is not jaundiced or pale. Findings: No bruising, erythema, lesion or rash. Neurological: General: No focal deficit present. Mental Status: She is alert and oriented to person, place, and time. Cranial Nerves: No cranial nerve deficit. Sensory: No sensory deficit. Motor: No weakness. Coordination: Coordination normal. Gait: Gait normal. Psychiatric: Mood and Affect: Mood normal. Behavior: Behavior normal. Thought Content: Thought content normal. Judgment: Judgment normal. Assessment and Plan ASSESSMENT/PLAN: 1. Acute otitis media, right - ICD9: 382.9, ICD10: H66.91 - Will begin treatment with as per antibiotic as written, see orders - The patient should also be given OTC cough and cold meds as needed, warm salt water gargles, throat lozenges and/or OTC throat spray as needed and nasal saline gtts and suction prn for the first 5-7 days of treatment. - Supportive care with plenty of fluids, rest, and analgesia prn. - Follow up in 3-5 days if symptoms persist or worsen. Cherise Pelaez APRN.LOKI documented in this encounter [facility] documented [facility] Diagnosis Nausea vomiting and diarrhea- Primary Diarrhea Exposure to COVID-19 virus [facility] Diagnosis URI, acute- Primary Acute upper respiratory infections of unspecified site Pharyngitis, unspecified etiology Acute otitis media, right Unspecified otitis media [facility] Diagnosis Near syncope- Primary Vertigo Dizziness and giddiness [facility] Diagnosis Sore throat- Primary Acute pharyngitis [facility] Diagnosis Nausea vomiting and diarrhea- Primary Diarrhea [facility] Diagnosis Pain, dental- Primary Unspecified disorder of the teeth and supporting structures Medical condition not demonstrated Person with feared complaint in whom no diagnosis was made [facility] Diagnosis URI, acute- Primary Acute upper respiratory infections of unspecified site documented in this encounter [facility] Summary Purpose Family History No Family History Records FoundNo Family History Records FoundNo Family History Records FoundNo Family History Records Found Advance Directives No Advanced Directives Records FoundNo Advanced Directives Records FoundNo Advanced Directives Records FoundNo Advanced Directives Records Found Health Concerns Infection Onset Date Last Indicated Resolved Time COVID-19 Rule-Out 03/13/2022 03/13/2022 Infection Onset Date Last Indicated Resolved Time COVID-19 Rule-Out 03/25/2022 03/25/2022 Infection Onset Date Last Indicated Resolved Time COVID-19 Rule-Out 03/25/2022 03/25/2022 03/26/2022 3:41 AM EDT Infection Onset Date Last Indicated Resolved Time COVID-19 Rule-Out 07/01/2023 07/01/2023 07/02/2023 3:34 AM EST Infection Onset Date Last Indicated Resolved Time COVID-19 Rule-Out 07/01/2023 07/01/2023 07/02/2023 3:34 AM EST Influenza 07/01/2023 07/01/2023 Additional Source Comments INFORMATION SOURCE (unrecogn ized section and content) DATE CREATED AUTHOR AUTHOR'S ORGANIZ ATION 12/22/2018 [facility] DATE CREATED AUTHOR AUTHOR'S ORGANIZ ATION 09/25/2022 [facility] DATE CREATED AUTHOR AUTHOR'S ORGANIZ ATION 07/02/2023 [facility] Source Comments (unrecognize d section and content) In the event this informatio n is protected by the Federal Confidentiality of Alcohol and Drug Abuse Patient Records regulations: The Federal rules restrict any use of the information to criminally investigate or prosecute any alcohol or drug abuse patient.[facility] the event this information is protected by the Federal Confidentiality of Alcohol and Drug Abuse Patient Records regulations: The Federal rules restrict any use of the information to criminally investigate or prosecute any alcohol or drug abuse patient.[facility] the event this information is protected by the Federal Confidentiality of Alcohol and Drug Abuse Patient Records regulations: The Federal rules restrict any use of the information to criminally investigate or prosecute any alcohol or drug abuse patient.[facility] Inc[facility] the event this information is protected by the Federal Confidentiality of Alcohol and Drug Abuse Patient Records regulations: The Federal rules restrict any use of the information to criminally investigate or prosecute any alcohol or drug abuse patient.[facility] Inc[facility] the event this information is protected by the Federal Confidentiality of Alcohol and Drug Abuse Patient Records regulations: The Federal rules restrict any use of the information to criminally investigate or prosecute any alcohol or drug abuse patient.[facility] Inc[facility] the event this information is protected by the Federal Confidentiality of Alcohol and Drug Abuse Patient Records regulations: The Federal rules restrict any use of the information to criminally investigate or prosecute any alcohol or drug abuse patient.[facility] Inc[facility] the event this information is protected by the Federal Confidentiality of Alcohol and Drug Abuse Patient Records regulations: The Federal rules restrict any use of the information to criminally investigate or prosecute any alcohol or drug abuse patient.[facility] the event this information is protected by the Federal Confidentiality of Alcohol and Drug Abuse Patient Records regulations: The Federal rules restrict any use of the information to criminally investigate or prosecute any alcohol or drug abuse patient.[facility] Inc[facility] the event this information is protected by the Federal Confidentiality of Alcohol and Drug Abuse Patient Records regulations: The Federal rules restrict any use of the information to criminally investigate or prosecute any alcohol or drug abuse patient.[facility] Inc[facility] the event this information is protected by the Federal Confidentiality of Alcohol and Drug Abuse Patient Records regulations: The Federal rules restrict any use of the information to criminally investigate or prosecute any alcohol or drug abuse patient.[facility] Reason for Visit (unrecogniz ed section and content) Reason Comments Diarrhea Vomiting, [place], cold c [place] x 1 day Reason Comments Results Reason Comments Throat Problem Bilateral ear pain, contact with positive Strep, N/V, x4 days. Reason Onset Date Comments Vomiting 09/22/2022 Reason Comments Dizziness Lightheaded with vom itingGoing on since Pj Reason Comments Headache X2 weeks, R ear pain , ST, runny nose, vomiting x1 day Reason Comments Vomiting [place], bodyaches x1 day Reason Comments Ear Pain right ear, jaw and r ight side of throat pain x x 5 days, increased x yesterday, STD std check-herpes Reason Comments Cough Cough, congestion, b odyaches, [place] x 2 days Care Teams (unrecognized sec tion and content) Printmaker Relationship Specialty Start Date End Date Nany Aguirre CNP [address], [place] [phone] PCP - General Family Practice 12/23/21 Printmaker Relationship Specialty Start Date End Date Nany Aguirre CNP [address], [place] [phone] PCP - General Family Practice 12/23/21 Printmaker Relationship Specialty Start Date End Date Nany Aguirre CNP [address], [place] [phone] PCP - General Family Practice 12/23/21 Printmaker Relationship Specialty Start Date End Date Stephen Waller MD [address] [place] [id number] PCP - General 08/16/18 Printmaker Relationship Specialty Start Date End Date Stephen Waller MD [address] [place] [id number] PCP - General 08/16/18 Printmaker Relationship Specialty Start Date End Date Nany Aguirre CNP PCP - General Family Medicine 12/23/21 Printmaker Relationship Specialty Start Date End Date Nany Aguirre CNP PCP - General Family Medicine 12/23/21 Printmaker Relationship Specialty Start Date End Date Nany Aguirre CNP PCP - General Family Medicine 12/23/21 Printmaker Relationship Specialty Start Date End Date Candelario LOKI Jaimes PCP - General Family Medicine 12/23/21 FOR RECORDS PERTAINING TO PATIENTS WHO ARE OR HAVE BEEN ENROLLED IN A CHEMICAL DEPENDENCY/SUBSTANCEABUSE PROGRAM, SOME INFORMATION MAY BE OMITTED. This clinical summary was aggregated from multiple sources. Caution should be exercised in using it in the provision of clinical care. This summary normalizes information from multiple sources, and as a consequence, information in this document may materially change the coding, format and clinical context of patient data. In addition, data may be omitted in some cases. CLINICAL DECISIONS SHOULD BE BASED ON THE PRIMARY CLINICAL RECORDS. [facility]. provides no warranty or guarantee of the accuracy or completeness of information in this document.
[2023-09-08] MEDS: Amox/Clavulanate 875 MG Tablet PO (06:51)
--- NOTE | 2023-09-08 06:58 | ED.VIS.DENTA ---
HPI History of Present Illness Chief Complaint: Dental Informant: patient Narrative Narrative: Patient is a 28-year-old female with history of tobacco use presenting with left-sided dental pain. For going on for about 2-3 days. Involves both upper and lower teeth and she is a hard time localizing it. She has been taking [id number] ibuprofen and Tylenol with no relief of her symptoms. She notes that she does have poor dentition with cracked teeth and caries. She notes she just got insurance and is plan on following up with a dentist. She states the pain is been worsening and she came in for further evaluation. Denies any difficulty swallowing but states it is painful. Is now having pain that goes down to her neck and into her ear. Denies any trauma. Denies any fever or chills. No other complaints or concerns at this time. No she has had symptoms or problems in the past and never been this severe. [facility] Medical History Anxiety Depression Physical exam, pre-employment Home Medications amoxicillin 875 mg-potassium clavulanate 125 mg tablet 1 tab PO BID #20 tabs 09/08/23 [Rx Last Taken Unknown] hydrocodone-acetaminophen 5-325mg 5mg-325mg 1 tab PO BID PRN pain 2 days #4 TABLETS 09/08/23 [Rx Last Taken Unknown] Allergy/AdvReac Type Severity Reaction Status Date / Time No Known Allergies Allergy Verified 09/08/23 06:23 Surgical History Hx of cholecystectomy [place] teeth extracted Social History household members: spouse Smoking Status: Current every day smoker tobacco type: e-cigarettes substance use type: does not use ROS ROS ED Constitutional Constitutional ED: Denies chills or fever(s) Eyes Eyes: Denies blurry vision or change in vision ENT ENT ED: Reports ear pain left and other Details: Left-sided dental pain ; Denies rhinorrhea or sore throat Cardiovascular Cardiovascular: Denies chest pain Gastrointestinal Gastrointestinal: Denies nausea or vomiting Musculoskeletal Musculoskeletal: Reports neck pain Integumentary Denies rash Hematologic/Lymphatic Hematologic/Lymphatic: Denies easy bleeding or easy bruising EXAM Physical Exam Const Vital Signs: 09/08/23 06:18 Temperature 98.3 F Temperature Source Temporal Pulse Rate 91 Respiratory Rate 16 Blood Pressure 106/79 Blood Pressure Mean 88 Pulse Ox 99 Oxygen Delivery Method Room Air Positive well nourished and well developed General Appearance ED: well developed and NAD HEENT Reports TM's clear HEENT Narrative: Patient has tenderness at her left bottom third molar as well as along the gumline for the left top premolars. There is no obvious area of fluctuance or signs of abscess amenable to drainage at this time. Sublingual mucosa is soft Negative for trauma Face and Sinus: sinuses nontender Tympanic Membrane ED: Yes TM's clear Mouth ED: Yes lips normal, Yes tongue normal, No mouth trauma and No oral and palatal mucosa abnormal Mouth: lips normal, tongue normal, No mouth trauma and No oral and palatal mucosa abnormal Teeth and Gingiva: abnormal tooth and associated gingiva Negative for associated gingival fluctuance, caries, poor dentition and teeth discoloration Throat: posterior oropharynx normal Eyes PERRL and EOMs intact bilaterally Neck no lymphadenopathy and supple General: normal visual inspection; Negative for anterior neck swelling or tenderness Chest Wall inspection of chest normal and palpation of chest normal Resp normal respiratory effort and no retractions Cardio regular rate and regular rhythm Neuro oriented x3 Sensorium / Orientation: alert Motor Exam: Negative for general weakness Psych mental status grossly normal Skin no rashes or lesions noted and no wounds MDM MDM MDM Narrative Medical decision making narrative: Patient is evaluated for worsening dental pain. She has been optimizing Tylenol and ibuprofen with no relief. I do not see an obvious nidus for the pain but she does have multiple caries in multiple areas that could have periapical abscesses. She drove here and will be started on Augmentin. Will give a short course of [place] for the first 24 hours of pain until the antibiotics to kick in. Patient is agreeable. Is given a work note for today. Is given return precautions. Given her dental referral sheet. Counseled on smoking cessation. Discharged home in stable condition. No physical exam findings concerning for large abscess, deep space infection or Dante's angina. Discharge Plan Triage Chief Complaint: Dental ED Provider: Sherry Godfrey Dx/Rx/DC Orders Clinical Impression: Tobacco abuse, Pain, dental Instructions: ED Dental Pain, ED Dental Cavity, ED How to Quit Smoking Prescriptions: New amoxicillin-pot clavulanate 875-125 mg tablet 1 tab PO BID Qty: 20 0RF hydrocodone-acetaminophen 5-325 mg tablet 1 tab PO BID PRN (Reason: pain) 2 Days Qty: 4 0RF Stand Alone Forms: ED Work / School Excuse Primary Care Provider: Fiona Palomino QUALITY SPECIALIST Referrals: Fiona Palomino QUALITY SPECIALIST, QUALITY SPECIALIST-C [Primary Care Provider] - Disposition Disposition: Home, Self Care
[2023-09-08 07:31] VITALS: BP 110/77; PULSE 74; RESP 16; TEMP 36.7; O2SAT 99
== END 2023-09-08 07:35 | disposition home or self-care (01) ==
PROVIDERS: Emergency Provider Emergency Medicine; PCP Registered Nurse; Visit Provider Emergency Medicine
DX: K08.89 Other specified disorders of teeth and supporting structures (principal); K02.9 Dental caries, unspecified; H92.09 Otalgia, unspecified ear; F17.210 Nicotine dependence, cigarettes, uncomplicated; M54.2 Cervicalgia
CPT/HCPCS: 99282

== ENCOUNTER 2023-10-14 07:12 | Emergency (ER) | payer MEDICAID, SELFPAY ==
[2023-10-14 07:13] VITALS: BP 123/79; PULSE 88; RESP 16; TEMP 36.3; O2SAT 100; BMI 28.9
--- NOTE | 2023-10-14 07:26 | EKG12_ITS ---
Test Reason : SYNCOPE Blood Pressure : / mmHG Vent. Rate : 083 BPM Atrial Rate : 083 BPM P-R Int : 128 ms QRS Dur : 082 ms QT Int : 366 ms P-R-T Axes : 024 045 054 degrees QTc Int : 430 ms Normal sinus rhythm Normal ECG Confirmed by DENISSE NEAL, CRISTOPHER ([id number]), newspaper editor managing HARDEEP RAMIREZ ([id number]) on 10/15/2023 9:47:33 AM Referred By: Confirmed By:CRISTOPHER SALCEDO MD
--- NOTE | 2023-10-14 07:29 | EX.ED.DYSGE1 ---
HPI <Roxana Avila RN - Last Filed: 10/14/23 08:21> History of Present Illness Chief Complaint: Syncope Detail of Chief Complaint: Anxiety followed by syncope Informant: patient Onset/Context/Timing Onset: Today Current Severity: 09/19 Maximum Severity: 1010 Worsened by: Nothing Relieved by: Nothing Narrative Narrative: Patient is a 28-year-old female with past medical history significant for anxiety, depression, and ADD who presents to the ED following a syncopal episode while at work. Patient reports she was having an anxiety attack and passed out hitting her outer right eye. Area is edematous and tender. She reports frequent anxiety attacks occurring almost daily while at work but not associated with syncope. She currently takes Prozac and buspirone both started by her PCP in the last month. She reports she has never taken Prozac before. However she has taken buspirone without difficulty. She reports she was breathing fast at the time and felt her heart racing. She felt better after the syncopal episode. She feels the Prozac is ineffective. She denies chest pain, palpitations, and shortness of breath. She does report she had a syncopal episode on 10/07/2023 after cleaning her ears. She was seen by her PCP that day and Daphne Green. She reports no treatment was necessary. She does not see a counselor or psychiatrist. She denies recent hospitalizations or travel. Prior similar symptoms: Yes Recent Illness/Hospitalization: No PFSH <Roxana Avila RN - Last Filed: 10/14/23 08:21> PFSH Medical History Anxiety Depression Physical exam, pre-employment Home Medications amoxicillin 875 mg-potassium clavulanate 125 mg tablet 1 tab PO BID #20 tabs 09/08/23 [Rx Last Taken Unknown] hydrocodone-acetaminophen 5-325mg 5mg-325mg 1 tab PO BID PRN pain 2 days #4 TABLETS 09/08/23 [Rx Last Taken Unknown] lorazepam 1 mg tablet (Ativan) 1 mg PO BID PRN anxiety #10 tabs 10/14/23 [Rx Last Taken Unknown] Allergy/AdvReac Type Severity Reaction Status Date / Time No Known Allergies Allergy Verified 10/14/23 07:13 Surgical History Hx of cholecystectomy [place] teeth extracted Social History household members: spouse Smoking Status: Current every day smoker tobacco type: e-cigarettes substance use type: does not use ROS <Roxana Avila RN - Last Filed: 10/14/23 08:21> ROS ED Constitutional Constitutional ED: Denies chills, fever(s) or sweats Eyes Eyes: Denies change in vision ENT ENT ED: Denies ear pain, rhinorrhea or sore throat Cardiovascular Cardiovascular: Denies chest pain, orthopnea, palpitations or racing heartbeat Respiratory/Chest Respiratory/Chest: Denies cough, dyspnea or orthopnea Gastrointestinal Gastrointestinal: Denies abdominal pain, diarrhea, nausea or vomiting Genitourinary Genitourinary ED: Reports LMP (females 10-50) Details: Comment: (10/07/2023); Denies dysuria or hematuria Musculoskeletal Musculoskeletal: Denies arthralgias or myalgias Integumentary Denies rash Neurologic Neurologic: Reports headache(s); Denies paresthesias or weakness Psychiatric Psychiatric: Reports anxiety; Denies depression or suicidal ideation Hematologic/Lymphatic Hematologic/Lymphatic: Reports systems reviewed and no addt'l complaints, except as documented EXAM <Roxana Avila RN - Last Filed: 10/14/23 08:21> Physical Exam Const Vital Signs: 10/14/23 07:13 10/14/23 07:12 10/14/23 08:12 Temperature 97.4 F L 97.8 F Temperature Source Temporal Pulse Rate 88 79 Respiratory Rate 16 16 Respiratory Effort Normal Respiratory Pattern Normal Blood Pressure 123/79 H 128/76 H Blood Pressure Mean 93 93 Pulse Ox 100 99 Oxygen Delivery Method Room Air Positive well nourished and well developed General Appearance ED: well developed and NAD HEENT Reports moist mucous membranes Eyes PERRL Neck no lymphadenopathy, supple and no JVD Chest Wall inspection of chest normal and palpation of chest normal Resp normal respiratory effort and clear to auscultation bilaterally Auscultation: Negative for rales, rhonchi or wheezes Cardio regular rate, regular rhythm, S1 normal heart sound and S2 normal heart sound GI normal to inspection, nondistended, normoactive bowel sounds and non-tender Auscultation: normoactive bowel sounds Palpation: soft Narrative: Denies dysuria, hematuria, and urinary frequency Back/Spine Cervical Spine: Negative for cervical spine tenderness Extremity normal to inspection General Extremety ED: Negative for edema or tenderness General Extremity: Negative for edema Neuro oriented x3 Sensorium / Orientation: alert Motor Exam: strength 5/5 throughout Psych mental status grossly normal Skin no rashes or lesions noted, no wounds and skin turgor normal <Dr. Emili Thomas MD - Last Filed: 10/14/23 08:10> Physical Exam Const Vital Signs: 10/14/23 07:13 10/14/23 07:12 10/14/23 08:12 Temperature 97.4 F L 97.8 F Temperature Source Temporal Pulse Rate 88 79 Respiratory Rate 16 16 Respiratory Effort Normal Respiratory Pattern Normal Blood Pressure 123/79 H 128/76 H Blood Pressure Mean 93 93 Pulse Ox 100 99 Oxygen Delivery Method Room Air MDM <Roxana Avila RN - Last Filed: 10/14/23 08:21> MDM MDM Narrative Medical decision making narrative: Patient placed on cardiac cath technician. EKG obtained to evaluate for cardiac arrhythmia/ischemia. CT head without contrast obtained to rule out intracranial hemorrhage or other intracranial process. History & Record Review Discussion w/independent historian: Patient Radiography Diagnostic Testing: Clinical Impression(s) from Imaging Studies Brain CT 10/14/23 07:35 IMPRESSION: Normal unenhanced CT scan of the brain. Mucosal thickening of the maxillary sinuses bilaterally slightly more prominent on the right side. Electronically Signed: Louie Khan MD at 7:48 EDT , EKG Initial EKG: Attestation: I personally reviewed and interpreted this EKG as follows: Interpretation: Sinus Rhythm Comments: Sinus rhythm with rate 83. No signs of dysrhythmia or ischemia. Management Discussion w/another healthcare provider: Other (Dr. Thomas, ED provider) Treatment and Re-Evaluation :: EKG and imaging reviewed. EKG shows a sinus rhythm with a rate of 83. No evidence of dysrhythmia or ischemia. CT of the brain was negative for acute intercranial process. Upon reevaluation, patient was awake and alert in no acute distress. She has an appointment with a new physician later this month. I have recommended she call the physician who prescribed Prozac if she feels she should not continue this medication. I also recommended she seek a counselor to help with her anxiety. Patient was advised to return to ED for worsening or concerning symptoms. Patient is agreeable with plan and to be discharged home. Patient seen and evaluated with JERRY student. I personally interviewed and examined the patient. I was involved in all aspects of patient's orders, interpretation of results, and treatment. Patient presents secondary to syncopal episode. Patient has a history of anxiety. She is currently on buspirone and was started on Prozac about a month ago. She was at work today and had an anxiety attack. She states she was tingling all over in her fingertips went numb. She felt her heart was racing, she was sweaty, she was breathing rapidly. She had brief syncopal episode and she states when she woke up she felt better. She did strike her right eyebrow. There was no laceration. Patient also reportedly had a brief syncopal episode and fall last week after she was cleaning out her ears. She hit her head on the bathtub. She was seen in the ER the following day but no imaging studies needed. Patient lying in bed no acute distress. Head and neck examination reveals mild soft tissue swelling to the lateral right eyebrow. Extraocular movements intact. Heart is regular rate and rhythm. Lung sounds are clear. Abdomen is soft and nontender. Neuro exam is unremarkable. EKG is obtained. This reveals sinus rhythm at 83 bpm with no acute ischemia. CT scan of the head is obtained and reveals no evidence of acute intracranial injury. Test results discussed with the patient. I do feel her syncopal episode is secondary to her hyperventilation with her anxiety attack. She has an appointment to see a different physician later this month regarding her psychiatric medications. In the meantime I will write her a short course of Ativan that she can use for breakthrough. I did recommend she continue her Prozac as she has already been on it for 4 weeks. She will also continue her buspirone. She is written off work today. Return instructions provided. <Dr. Emili Thomas MD - Last Filed: 10/14/23 08:10> MDM Radiography Diagnostic Testing: Clinical Impression(s) from Imaging Studies Brain CT 10/14/23 07:35 IMPRESSION: Normal unenhanced CT scan of the brain. Mucosal thickening of the maxillary sinuses bilaterally slightly more prominent on the right side. Electronically Signed: Louie Khan MD at 7:48 EDT , Treatment and Re-Evaluation :: Patient seen and evaluated with JERRY student. I personally interviewed and examined the patient. I was involved in all aspects of patient's orders, interpretation of results, and treatment. Patient presents secondary to syncopal episode. Patient has a history of anxiety. She is currently on buspirone and was started on Prozac about a month ago. She was at work today and had an anxiety attack. She states she was tingling all over in her fingertips went numb. She felt her heart was racing, she was sweaty, she was breathing rapidly. She had brief syncopal episode and she states when she woke up she felt better. She did strike her right eyebrow. There was no laceration. Patient also reportedly had a brief syncopal episode and fall last week after she was cleaning out her ears. She hit her head on the bathtub. She was seen in the ER the following day but no imaging studies needed. Patient lying in bed no acute distress. Head and neck examination reveals mild soft tissue swelling to the lateral right eyebrow. Extraocular movements intact. Heart is regular rate and rhythm. Lung sounds are clear. Abdomen is soft and nontender. Neuro exam is unremarkable. EKG is obtained. This reveals sinus rhythm at 83 bpm with no acute ischemia. CT scan of the head is obtained and reveals no evidence of acute intracranial injury. Test results discussed with the patient. I do feel her syncopal episode is secondary to her hyperventilation with her anxiety attack. She has an appointment to see a different physician later this month regarding her psychiatric medications. In the meantime I will write her a short course of Ativan that she can use for breakthrough. I did recommend she continue her Prozac as she has already been on it for 4 weeks. She will also continue her buspirone. She is written off work today. Return instructions provided. Discharge Plan Triage Chief Complaint: Syncope ED Provider: Emili Thomas Dx/Rx/DC Orders Clinical Impression: Anxiety, Syncope Instructions: ED Anxiety Reaction, ED Hyperventilation Syndrome, ED Fainting, Uncertain Cause Prescriptions: New lorazepam [Ativan] 1 mg tablet 1 mg PO BID PRN (Reason: anxiety) Qty: 10 0RF Rx Instructions: 1/2-1 tab po BID prn anxiety No Action amoxicillin-pot clavulanate 875-125 mg tablet 1 tab PO BID Qty: 20 0RF hydrocodone-acetaminophen 5-325 mg tablet 1 tab PO BID PRN (Reason: pain) 2 Days Qty: 4 0RF Stand Alone Forms: ED Work / School Excuse Primary Care Provider: Fiona Palomino NP Referrals: Fiona Palomino NP, SEISMIC ENGINEER-C [Primary Care Provider] - Disposition Disposition: Home, Self Care Discharge Date/Time: 10/14/23 08:17
--- NOTE | 2023-10-14 07:35 | CT_ITS ---
STUDY: CT BRAIN WITHOUT CONTRAST REASON FOR EXAM: Female, 28 years old. Head injury. Soft tissue swelling overlying the right orbital region. RADIATION DOSAGE (If Supplied By Facility): CTDIvol = ( 44.99 ) mGy, DLP = ( 745.49 ) mGycm TECHNIQUE: Transaxial CT imaging of the brain was performed without administration of intravenous contrast material. Individualized dose optimization techniques were used for this CT. COMPARISON: No relevant priors. FINDINGS: Normal soft tissue structures. Normal calvarium. Normal size ventricles and extra-axial spaces for the patient''s age. Normal white matter tracts of the cerebral hemispheres. Normal basal ganglia and thalami. Normal brainstem. Normal cerebellum. There is no intracranial hemorrhage. There are no findings of an acute ischemic infarction. Mild degree of mucosal thickening of the maxillary sinuses bilaterally more prominent on the right side. CT/Brain/Head without Contrast IMPRESSION: Normal unenhanced CT scan of the brain. Mucosal thickening of the maxillary sinuses bilaterally slightly more prominent on the right side. Electronically Signed: Louie Khan MD at 7:48 EDT ,
[2023-10-14 08:12] VITALS: BP 128/76; PULSE 79; RESP 16; TEMP 36.6; O2SAT 99
== END 2023-10-14 08:17 | disposition home or self-care (01) ==
PROVIDERS: Emergency Provider Emergency Medicine; PCP Registered Nurse; Visit Provider Emergency Medicine
DX: R55 Syncope and collapse (principal); F41.9 Anxiety disorder, unspecified; F17.210 Nicotine dependence, cigarettes, uncomplicated; Z90.49 Acquired absence of other specified parts of digestive tract
CPT/HCPCS: 70450; 93005; 99283

== ENCOUNTER → 2023-10-15 | Outpatient (CLI) | payer MEDICAID, SELFPAY ==
[2023-10-15 11:42] LABS: Absolute Lymphocyte Count 2.85 X10^3/uL (0.83-4.51); Absolute Neutrophil Count 11.4 X10^3/uL (2.0-7.7); Basophil# 0.06 X10^3/uL; Basophil% 0.4 % (0-1); Eosinophil# 0.16 X10^3/uL; Hematocrit 44.6 % (37-47); Hemoglobin 15.1 g/dL (12.0-15.0); Lymphocyte # 2.85 X10^3/ul (0.83-4.51); Lymphocyte % 18.6 % (19-41); Mean Corp Hgb Conc 33.9 g/dL (32-36); Mean Corpuscular Hgb 32.7 pg (27.0-32.0); Mean Corpuscular Volume 96.5 fL (81-99); Mean Platelet Vol. 8.6 fl (6.2-12.0); Monocyte% 5.2 % (0-10); NRBC Flagged by Analyzer 0 % (0-5); Neutrophil # 11.38 X10^3/uL (2.7-7.7); Neutrophil % 74.2 % (47-70); Platelet Count 410 K/mm3 (150-450); RBC Distribution Width CV 12.4 % (11.6-14.6); RBC Distribution Width SD 43.8 fl (35.1-43.9); Red Blood Count 4.62 M/mm3 (4.2-5.4); White Blood Count 15.3 K/mm3 (4.4-11.0)
[2023-10-15 12:21] LABS: Vitamin D,25 Hydroxy 11.4 ng/mL
[2023-10-15 12:29] LABS: Hemoglobin A1c 4.9 % (3.8-5.6)
[2023-10-15 12:36] LABS: AST(SGOT) 13 U/L (15-37); Alanine Aminotransfer ALT/SGPT 21 U/L (13-56); Albumin, Serum 3.8 g/dL (3.2-5.0); Alkaline Phosphatase 89 U/L (45-117); Anion Gap 5 (5-15); BUN 9 mg/dL (7-18); BUN/Creat Ratio 12.1 RATIO (10-20); Calcium,Total 9.1 mg/dL (8.5-10.1); Chloride 106 mmol/L (98-107); Creatinine, Serum 0.74 mg/dL (0.55-1.02); EST Glomerular Filtration Rate 98 mL/min (>60); Est Glom Filt Rate - Afr Amer 118 mL/min (>60); Globulin 3.9 g/dL (2.2-4.2); Glucose 108 mg/dL (74-106); Protein, Total 7.7 g/dL (6.4-8.2); Sodium Level 137 mmol/L (136-145); Thyroid Stim Hormone (TSH) 0.98 uIU/mL (0.358-3.74)
== END | disposition home or self-care (01) ==
LOC: LAB 11:12
PROVIDERS: PCP Registered Nurse; Referring Provider Nurse Practitioner Family; Visit Provider Nurse Practitioner Family
DX: F41.8 Other specified anxiety disorders (principal); R55 Syncope and collapse
CPT/HCPCS: 36415; 80053; 82306; 83036; 84443; 85025

== ENCOUNTER 2024-10-16 13:14 | Emergency (ER) | payer SELFPAY ==
[2024-10-16 13:15] VITALS: BP 126/93; PULSE 86; RESP 15; TEMP 36.2; O2SAT 100; BMI 29.6
--- NOTE | 2024-10-16 14:27 | EDS_ITS ---
HPI History of Present Illness Chief Complaint: General Illness Informant: patient Onset/Context/Timing Onset: Weeks (1) Context: Gradual Onset Timing: Continuous Quality: Lightheaded Location: Generalized Worsened by: Standing Relieved by: Nothing Narrative Narrative: Patient presents with shortness of breath and lightheadedness that has been getting worse over the past week. Patient states it is gradually getting worse. Patient states she feels stupid currently, patient states her lightheadedness gets worse with standing. Patient does admit to some shortness of breath and cough. Patient states she is coughing up [place] and green sputum. Patient also admits to some blurry vision. Patient admits to some nausea but denies any vomiting. Patient denies any fevers or chills. [facility] Medical History Physical exam, pre-employment Depression Anxiety Home Medications ?Medication ?Instructions ?Recorded ?Last Taken ?Type amoxicillin 875 mg-potassium 1 tab PO BID #20 tabs Unknown Rx clavulanate 125 mg tablet hydrocodone-acetaminophen 5-325mg 1 tab PO BID PRN adelita n 2 days #4 09/08/23 Unknown Rx 5mg-325mg TABLETS lorazepam 1 mg tablet (Ativan) 1 mg PO BID PRN anxiety #10 tabs 10/14/23 Unknown Rx Allergy/AdvReac Type Severity Reaction Status Date / Time No Known Allergies Allergy Verified 10/16/24 13:18 Surgical History Hx of cholecystectomy [place] teeth extracted Social History household members: spouse Smoking Status: Current every day smoker tobacco type: e-cigarettes substance use type: does not use ROS ROS ED Constitutional Constitutional ED: Denies chills or fever(s) Eyes Eyes: Reports blurry vision; Denies diplopia ENT ENT ED: Denies rhinorrhea or sore throat Cardiovascular Cardiovascular: Reports chest pain; Denies palpitations Respiratory/Chest Respiratory/Chest: Reports cough, dyspnea and sputum Gastrointestinal Gastrointestinal: Reports nausea; Denies vomiting Genitourinary Genitourinary ED: Denies dysuria or hematuria Musculoskeletal Musculoskeletal: Denies back pain or neck pain Integumentary Denies abscess or rash Neurologic Neurologic: Denies headache(s) or weakness Allergic/Immunologic Allergic/Immunologic ED: Denies mouth swelling or urticaria EXAM Physical Exam Const Vital Signs: 10/16/24 13:15 10/16/24 13:54 10/16/24 14:32 Temperature 97.1 F L Temperature Source Oral Pulse Rate 86 Pulse Rate [Lying] 64 Pulse Rate [Sitting (for 1 minute prior to obtaining)] 61 Pulse Rate [Standing (for 1 minute prior to obtaining)] 66 Respiratory Rate 15 Respiratory Effort Normal Respiratory Pattern Normal Blood Pressure 126/93 H Blood Pressure [Lying] 111/83 H Blood Pressure [Sitting (for 1 minute prior to obtaining)] 117/77 Blood Pressure [Standing (for 1 minute prior to obtaining)] 131/93 H Blood Pressure Mean 104 Blood Pressure Mean [Lying] 92 Blood Pressure Mean [Sitting (for 1 minute prior to obtaining)] 90 Blood Pressure Mean [Standing (for 1 minute prior to obtaining)] 105 Pulse Ox 100 Oxygen Delivery Method Room Air 10/16/24 14:59 Temperature 97.9 F Temperature Source Oral Pulse Rate 81 Pulse Rate [Lying] Pulse Rate [Sitting (for 1 minute prior to obtaining)] Pulse Rate [Standing (for 1 minute prior to obtaining)] Respiratory Rate 18 Respiratory Effort Respiratory Pattern Blood Pressure 125/98 H Blood Pressure [Lying] Blood Pressure [Sitting (for 1 minute prior to obtaining)] Blood Pressure [Standing (for 1 minute prior to obtaining)] Blood Pressure Mean 107 Blood Pressure Mean [Lying] Blood Pressure Mean [Sitting (for 1 minute prior to obtaining)] Blood Pressure Mean [Standing (for 1 minute prior to obtaining)] Pulse Ox 98 Oxygen Delivery Method Room Air Positive well nourished and well developed Constitutional Narrative: BMI is 29.7. General Appearance ED: well developed and NAD HEENT Reports moist mucous membranes Neck supple and no JVD Resp normal respiratory effort and clear to auscultation bilaterally Cardio regular rate and regular rhythm GI non-tender and non-distended Palpation: soft Neuro oriented x3, CN's II-XII intact bilaterally and no sensory deficits noted Sensorium / Orientation: alert Motor Exam: strength 5/5 throughout Psych mental status grossly normal MDM MDM MDM Narrative Medical decision making narrative: Differential diagnosis includes viral illness, pneumonia, bronchitis, dehydration, electrolyte abnormality, urinary tract infection, and . CBC will be obtained to assess for leukocytosis and anemia. Basic metabolic profile will be obtained to assess for electrolyte abnormality and renal function. Urinalysis will be obtained to assess for urinary tract infection and hematuria. Urine hCG will be obtained to assess for . COVID-19, influenza, and RSV PCR will be obtained to assess for viral illness. Chest x- ray will be obtained to assess for pneumonia. Lab Data Attestation: I reviewed the patient's lab results. Lab results narrative: CBC was reviewed and was within normal limits. Basic metabolic profile was reviewed and was within normal limits. Serum hCG was reviewed and was negative. Urinalysis was reviewed. There is no evidence of urinary tract infection or hematuria. COVID-19 PCR was reviewed and was negative. Influenza PCR was reviewed and was negative for influenza A and influenza B. RSV PCR was reviewed and was negative. Labs: Laboratory Results - last 24 hr 10/16/24 10/16/24 13:58 14:39 WBC 10.2 RBC 4.50 Hgb 15.0 Hct 43.2 MCV 96.0 MCH 33.3 H MCHC 34.7 RDW Std Deviation 45.5 H RDW Coeff of Sheri 12.8 Plt Count 372 MPV 9.0 Immature Gran % (Auto) 0.400 Neut % (Auto) 69.2 Lymph % (Auto) 22.4 [place] % (Auto) 5.9 Eos % (Auto) 1.6 Baso % (Auto) 0.5 Absolute Neuts (auto) 7.1 Absolute Lymphs (auto) 2.29 Nucleated RBC % 0 Sodium 138 Potassium 3.9 Chloride 106 Carbon Dioxide 21.5 Anion Gap 11 BUN 6 Creatinine 0.67 L Estim Creat Clear Calc 109.79 Est GFR (MDRD) Non-Af 120 BUN/Creatinine Ratio 8.4 L Glucose 100 H Calcium 9.3 Serum , Qual NEGATIVE Urine Color Yellow Urine Clarity Clear Urine pH 7.0 Ur Specific [place] 1.010 Urine Protein Negative Urine Glucose (UA) Normal Urine Ketones Negative Urine Occult Blood 10 H Urine Nitrite Negative Urine Bilirubin Negative Urine Urobilinogen Normal Ur Leukocyte Esterase Negative Urine RBC 0-5 SEEN Urine WBC 0 SEEN Ur Squamous Epith Cells 0-5 SEEN Urine Bacteria RARE Urine Mucus 0 SEEN Radiography Chest X-Ray - ED: 2 View, Read by ED Physician, Read by Radiologist and No Acute Disease Diagnostic Testing: Clinical Impression(s) from Imaging Studies Chest X-Ray 10/16/24 14:45 IMPRESSION: NEGATIVE CHEST Reading Location: [facility] PA and lateral chest x-ray was obtained. There are 2 views. On my independent interpretation, lung garay are clear. There is normal cardiac silhouette. Bony thorax is normal. There is no acute process noted. Radiologist also interpreted the x-ray and agrees. Treatment and Re-Evaluation :: Smoking cessation was discussed. Patient was given IV fluids. I did notified by nursing staff that patient did have a brief episode of unresponsiveness. Patient then responded to tactile stimuli. Patient woke up immediately. Patient was advised of her findings. Orthostatic vital signs were obtained and were within normal limits. Patient was advised that this is most likely a viral illness. Patient was instructed to drink plenty of fluids. Patient was instructed to follow-up with her primary care physician in 5 to 7 days. Patient understood and was agreeable with the plan. All questions were answered. Discharge Plan Triage Chief Complaint: General Illness ED Provider: Konrad Bush Dx/Rx/DC Orders Clinical Impression: Lightheadedness, Viral illness Instructions: ED Dizziness, Uncertain Cause, ED Viral Syndrome (Adult) Prescriptions: No Action amoxicillin-pot clavulanate 875-125 mg tablet 1 tab PO BID Qty: 20 0RF hydrocodone-acetaminophen 5-325 mg tablet 1 tab PO BID PRN (Reason: pain) 2 Days Qty: 4 0RF lorazepam [Ativan] 1 mg tablet 1 mg PO BID PRN (Reason: anxiety) Qty: 10 0RF Rx Instructions: 1/2-1 tab po BID prn anxiety Stand Alone Forms: ED Work / School Excuse Primary Care Provider: Cherise Mccord Referrals: Cherise Mccord, REHABILITATION PROGRAM MANAGER-C [Primary Care Provider] - 5-7 Days Print Language: Surinamese Disposition Disposition: Home, Self Care
[2024-10-16 14:28] LABS: Absolute Lymphocyte Count 2.29 X10^3/uL (0.83-4.51); Absolute Neutrophil Count 7.1 X10^3/uL (2.0-7.7); Basophil# 0.05 X10^3/uL; Basophil% 0.5 % (0-1); Eosinophil# 0.16 X10^3/uL; Eosinophils% 1.6 % (0-5); Hematocrit 43.2 % (37-47); Lymphocyte # 2.29 X10^3/ul (0.83-4.51); Lymphocyte % 22.4 % (19-41); Mean Corp Hgb Conc 34.7 g/dL (32-36); Mean Corpuscular Hgb 33.3 pg (27.0-32.0); Monocyte% 5.9 % (0-10); NRBC Flagged by Analyzer 0 % (0-5); Neutrophil # 7.07 X10^3/uL (2.7-7.7); Neutrophil % 69.2 % (47-70); Platelet Count 372 K/mm3 (150-450); RBC Distribution Width CV 12.8 % (11.6-14.6); RBC Distribution Width SD 45.5 fl (35.1-43.9); White Blood Count 10.2 K/mm3 (4.4-11.0)
[2024-10-16 14:32] VITALS: BP 111/83; BP 117/77; BP 131/93; PULSE 61; PULSE 64; PULSE 66
[2024-10-16 14:32] LABS: Internal QC Validated? YES +Cl - CLEAR BKGD; Pregnancy, Serum, hCG Quali. NEGATIVE Negative
[2024-10-16] MEDS: 0.9% Normal Saline (1000mL) 1,000 ML 1000 ML IV (14:38)
--- NOTE | 2024-10-16 14:45 | RAD_ITS ---
PROCEDURE: CHEST PA AND LATERAL 10/16/2024 REASON FOR EXAM: COUGH TECHNIQUE: Frontal and lateral views of the chest. COMPARISON: NONE. FINDINGS: Hardware: None. Heart: The heart size is normal. Mediastinum: The mediastinal contour is unremarkable. Lungs: No focal consolidation, pleural effusion or pneumothorax. Bones: The bones are unremarkable. RAD/Chest PA and Lateral IMPRESSION: NEGATIVE CHEST Reading Location: [id number]
[2024-10-16 14:47] LABS: Mucous, Urine 0 SEEN /hpf (<or=2+); White Blood Cells 0 SEEN /hpf (0-5)
[2024-10-16 14:50] LABS: Color, Urine Yellow (Yellow); Glucose, Dipstick Normal (Normal); Ketone-Dipstick Negative (Negative); Leukocyte Esterase-Dipstick Negative /ul (Negative); Nitrite-Dipstick Negative (Negative); Occult Blood-Urine 10 /ul (Negative); Protein-Dipstick Negative (Negative); Urine Bilirubin Dipstick Negative (Negative); Urine Clarity Clear (Clear); Urine Urobilinogen Normal (Normal)
[2024-10-16 14:55] LABS: Anion Gap 11 (5-15); BUN 6 mg/dL (4-19); BUN/Creat Ratio 8.4 RATIO (10-20); Calcium,Total 9.3 mg/dL (7.6-11.0); Carbon Dioxide 21.5 mmol/L (21.0-32.0); Chloride 106 mmol/L (98-108); Creatinine, Serum 0.67 mg/dL (0.70-1.20); EST Glomerular Filtration Rate 120 (>60); Estimated Creatinine Clearance 109.79 ml/min (50-250); Glucose 100 mg/dL (70-99); Potassium 3.9 mmol/L (3.3-5.1); Sodium Level 138 mmol/L (133-145)
[2024-10-16 14:55] LABS: Red Blood Cells-Urine 0-5 SEEN /hpf (0-5); Squamous Epithelial Cells - UA 0-5 SEEN /hpf (5-10)
--- NOTE | 2024-10-16 14:55 | ED.RN ---
deployment technician notified this RN that patient was not responding to verbal stimuli in bed. When this RN went bedside patient was laying back in bed with eye closed and slightly moving but not responding to vocal stimuli. This RN pushed lightly one patients chest with one finger and patient sat straight up gasping with eyes wide and began hysterically sobbing. Patient would not vocalize what was/if something was wrong. Dr. Bush notifed. HR 103, other vitals WNL. Patient apologetic and crying.
[2024-10-16 14:56] LABS: Bacteria RARE /hpf (None Seen)
[2024-10-16 14:59] VITALS: BP 125/98; PULSE 81; RESP 18; TEMP 36.6; O2SAT 98
[2024-10-16 15:52] VITALS: BP 109/77; PULSE 71; RESP 14; TEMP 36.6; O2SAT 98
== END 2024-10-16 15:52 | disposition home or self-care (01) ==
PROVIDERS: Emergency Provider Emergency Medicine; PCP Nurse Practitioner Family; Visit Provider Emergency Medicine
DX: R42 Dizziness and giddiness (principal); H53.8 Other visual disturbances; R06.02 Shortness of breath; B34.9 Viral infection, unspecified; R11.0 Nausea; R07.9 Chest pain, unspecified; R05.9 Cough, unspecified; Z90.49 Acquired absence of other specified parts of digestive tract; F17.290 Nicotine dependence, other tobacco product, uncomplicated
CPT/HCPCS: 71046; 80048; 81001; 84703; 85025; 87631; 96360; 99284